=== PATIENT | female | born 1965 | race African-American/Black ===

== ENCOUNTER 2021-02-05 18:08 | Emergency (ER) | payer BC, SELFPAY ==
[2021-02-05 18:10] VITALS: BP 156/98; PULSE 98; RESP 18; TEMP 36.9; O2SAT 98
[2021-02-05 18:25] LABS: Basophils Percent Auto 0.7 % (0.2-1.2); Eosinophils Percent Auto 0.9 % (0-4.4); Hematocrit 44.2 % (37.0-47.0); Hemoglobin 14.7 g/dL (12.0-15.0); Immature Granulocyte Absolute 0.03 K/mm3 (0.00-0.031); Immature Granulocyte Percent A 0.7 % (0-0.5); Lymphocytes Absolute Auto 1.31 K/mm3 (0.9-3.2); Lymphocytes Percent Auto 30.1 % (18.3-44.2); Mean Corpuscular HGB Conc 33.3 g/dl (32-36); Mean Corpuscular Hemoglobin 31.6 pg (26-34); Mean Corpuscular Volume 95.1 fl (80-100); Mean Platelet Volume 10.7 fl (7.4-10.4); Monocytes Absolute Auto 0.7 K/mm3 (0.1-0.6); Monocytes Percent Auto 16.6 % (2.6-8.5); Neutrophils Absolute Auto 2.2 K/mm3 (1.3-6.7); Platelet Count Result 175 k/mm3 (150-375); Red Blood Count 4.65 M/mm3 (4.2-5.4); Red Cell Distribution Width 13.2 % (11.5-14.5); White Blood Count 4.4 K/mm3 (4.5-10.0)
[2021-02-05 18:33] LABS: Alanine Aminotransferase 16 U/L (4-35); Albumin Level 4.1 g/dL (3.5-5.1); Alkaline Phosphatase 62 U/L (38-126); Anion Gap 11 mmol/L (8-16); Aspartate Amino Transferase 25 U/L (14-36); Bilirubin,Total 0.9 mg/dL (0.2-1.3); Blood Urea Nitrogen 16 mg/dL (7-17); Calcium 9.4 mg/dL (8.4-10.2); Carbon Dioxide 24 mmol/L (22-30); Chloride 100 mmol/L (98-107); Estimated CRCL calculation 60 ml/min; Estimated Glomerular Filt Rate > 60; Glucose 93 mg/dL (65-110); Potassium 3.9 mmol/L (3.4-5.0); Sodium 135 mmol/L (137-145)
[2021-02-05 21:42] LABS: Add Urine Microscopic? YES; Appearance Urine Clear (Clear); Bacteria Urine 3+ /hpf; Bilirubin Urine Negative (Negative); Blood Urine 1+ (Negative); Color Urine Straw (Yellow); Glucose Urine UA Negative (Negative); Ketones Urine Negative (Negative); Leukocyte Esterase Ur Negative LEU/UL (Negative); Mucus Urine Rare /lpf; Nitrate Urine Negative (Negative); Protein Urine Negative (Negative); Specific Grav Ur 1.006 (1.001-1.035); Squamous Epithelial Cell Urine Rare /hpf (Few); Urobilinogen Urine Negative mg/dL (<2.0)
[2021-02-05] MEDS: diazePAM INJ (*CRX) 10 MG/2 ML SYRINGE 5 MG IV PUSH (21:52)
[2021-02-05] MEDS: KETOROLAC 30 MG/ML VIAL (*BKC) IV PUSH (21:53)
[2021-02-05] MEDS: SODIUM CHLORIDE 0.9% IV 1,000 ML 999 ML IV CONT (21:56)
--- NOTE | 2021-02-05 22:47 | ED.GENADULT ---
HPI - General Adult General Chief complaint: Abdominal Pain Stated complaint: Right flank pain. hx. of lupus. Time Seen by Provider: 02/05/21 20:52 History of Present Illness HPI narrative: Patient is a 55-year-old female with history of lupus who presents ER with right-sided flank pain. Ongoing over the last several days. Begins in her low back. She is felt some discomfort moved into her right mid abdomen as well. No urinary frequency urgency or dysuria. No hematuria. No nausea/vomiting. Reports she had outpatient blood work that showed an unknown potential issue with her kidney. She reports she has been taking ibuprofen without relief. Back pain is worse with bending twisting. No known injury or trauma. No lower extremity numbness or tingling. Related Data Allergies Allergy/AdvReac Type Severity Reaction Status Date / Time Contrast Media Allergy Unknown Hives / Uncoded 02/05/21 20:57 Red Face Review of Systems Review of Systems: All systems reviewed & are unremarkable except as noted in HPI and below Constitutional: Constitutional: Denies chills and Denies fever(s) Gastrointestinal: Gastrointestinal: Reports abdominal pain, Denies diarrhea, Denies nausea and Denies vomiting Genitourinary: Genitourinary: Denies hematuria, Denies nocturia, Denies dysuria and Reports flank pain Musculoskeletal: Musculoskeletal: Reports back pain, Denies arthralgias, Denies joint swelling and Reports muscle cramps Neurologic: Denies focal weakness and Denies numbness PMFSH Past Medical History Medical History (Updated 02/05/21 @ 23:05 by Franklin Khan MD) Lupus Rheumatoid arthritis Surgical History Surgical History (Updated 02/05/21 @ 22:56 by Franklin Khan MD) History of hysterectomy Social History Social History (Updated 02/05/21 @ 22:57 by Franklin Khan MD) Smoking status: Never smoker Exam Narrative: GENERAL: Well-appearing, well-nourished, and in no acute distress. HEAD: Normocephalic, atraumatic. CHEST: Clear to auscultation. No respiratory distress. HEART: Regular rate and rhythm. Normal peripheral pulses. ABDOMEN: Soft, nontender, nondistended. No CVA tenderness. Back: No midline tenderness of the thoracic or lumbar spine. Patient is very tender over the paraspinal musculature in the upper lumbar region. Knots palpated. EXTREMITIES: Normal range of motion. No edema. SKIN: Warm, dry, no rash. NEURO: Alert and oriented x3. PSYCH: Normal mood and affect. Course Course Emergency Course: Pain improved with Toradol and Valium. Reexamination back shows relaxation of the muscles with only mild discomfort. Repeat exam the abdomen shows no reproducible abdominal discomfort. Symptoms felt to be related to muscle spasm. Patient may also be developing UTI given 3+ bacteria. Will start on antibiotics. Vital Signs Vital signs: Vital Signs Temperature 98.4 F 02/05/21 18:10 Pulse Rate 98 02/05/21 18:10 Respiratory Rate 18 02/05/21 18:10 Blood Pressure 156/98 H 02/05/21 18:10 Pulse Oximetry 98 02/05/21 18:10 Temperature 98.4 F 02/05/21 18:10 Pulse Rate 98 02/05/21 18:10 Respiratory Rate 18 02/05/21 18:10 Blood Pressure 156/98 H 02/05/21 18:10 Pulse Oximetry 98 02/05/21 18:10 Medical Decision Making Vital Signs Vital Signs: Vital Signs Temperature 98.4 F 02/05/21 18:10 Pulse Rate 98 02/05/21 18:10 Respiratory Rate 18 02/05/21 18:10 Blood Pressure 156/98 H 02/05/21 18:10 Pulse Oximetry 98 02/05/21 18:10 Temperature 98.4 F 02/05/21 18:10 Pulse Rate 98 02/05/21 18:10 Respiratory Rate 18 02/05/21 18:10 Blood Pressure 156/98 H 02/05/21 18:10 Pulse Oximetry 98 02/05/21 18:10 Lab Data Result diagrams: 02/05/21 18:16 02/05/21 18:16 Labs: Lab Results 02/05/21 02/05/21 02/05/21 Range/Units 18:16 18:16 21:22 WBC 4.4 L (4.5-10.0) K/mm3 RBC 4.65 (4.2-5.4) M/mm3 Hgb 14.
[2021-02-05 23:54] VITALS: BP 146/76; PULSE 74; RESP 16; O2SAT 99
== END 2021-02-05 23:55 | disposition home or self-care (01) ==
PROVIDERS: Emergency Provider Emergency Medicine
DX: N39.0 Urinary tract infection, site not specified (principal); M54.50 Low back pain, unspecified; M06.9 Rheumatoid arthritis, unspecified
CPT/HCPCS: 36415; 80053; 81001; 81025; 85025; 96361; 96374; 96375; 99284; J1885; J3360; J7030

== ENCOUNTER 2021-12-07 16:40 | Observation (INO) | payer BC, SELFPAY ==
[2021-12-07] VITALS (30 sets, daily range): BP systolic 118–158; BP diastolic 68–123; PULSE 72–89; RESP 16–22; TEMP 36.7–36.8; O2SAT 95–100
--- NOTE | ~2021-12-07 | CT_ITS ---
EXAMINATION: CTA chest PE protocol DATE: 12/08/2021 13:50 INDICATION: Right chest pain. Shortness of breath. TECHNIQUE: Computed tomography angiography (CTA) of the chest was performed with 100 mL Omnipaque-350 intravenous contrast timed to evaluate the pulmonary arteries. Coronal maximum intensity projection 3D-reconstructions were created by the technologist. Automated exposure control and iterative reconst ruction technique were employed. The dose-length product was 433.78 mGy-cm. COMPARISON: CT abdomen and pelvis 08/01/2018 FINDINGS: There is mild scarring at the lung apices. There is a 4 mm nodule in right upper lobe, like ly benign. There is mild dependent atelectasis bilaterally. No pleural effusion. The heart size is no rmal. No pericardial effusion. There is no pulmonary embolus. There is mild thoracic spondylosis. IMPRESSION: 1. No pulmonary embolus. Reviewed, dictated and finalized at location A. IMPRESSION: 1. No pulmonary embolus.
--- NOTE | ~2021-12-07 | XR_ITS ---
EXAMINATION: XR chest 2V DATE: 12/07/2021 17:44 INDICATION: Chest pain. TECHNIQUE: Frontal and lateral views of the chest were obtained. COMPARISON: Chest 2 views 04/05/2018 FINDINGS: There is mild atelectasis in the lower lung zones. There is mild scarring at the lung apice s. No pleural effusion or pneumothorax. The heart size is normal. IMPRESSION: 1. Mild atelectasis in the lower lung zones and mild scarring at the lung apices. Reviewed, dictated and finalized at location A. IMPRESSION: 1. Mild atelectasis in the lower lung zones and mild scarring at the lung apice s.
--- NOTE | 2021-12-07 16:42 | ECG_ITS ---
Measurements Intervals [place] Rate: 88 P: 108 SD: 160 QRS: 161 QRSD: 76 T: 171 QT: 385 QTc: 467 Interpretive Statements SINUS RHYTHM VENTRICULAR PREMATURE COMPLEX ARM LEADS REVERSED BORDERLINE T WAVE ABNORMALITY- INFERIOR LEADS BORDERLINE ECG NO PREVIOUS ECG AVAILABLE FOR COMPARISON Electronically Signed On 12-07-2021 16:47:31 CDT by Pavel Cruz D.O.
[2021-12-07 17:39] LABS: Basophils Percent Auto 0.5 % (0.2-1.2); Eosinophils Percent Auto 0.7 % (0-4.4); Hematocrit 44.2 % (37.0-47.0); Hemoglobin 14.9 g/dL (12.0-15.0); Lymphocytes Absolute Auto 1.42 K/mm3 (0.9-3.2); Lymphocytes Percent Auto 35.1 % (18.3-44.2); Mean Corpuscular HGB Conc 33.7 g/dl (32-36); Mean Corpuscular Volume 95.1 fl (80-100); Mean Platelet Volume 10.8 fl (7.4-10.4); Monocytes Absolute Auto 0.4 K/mm3 (0.1-0.6); Monocytes Percent Auto 10.6 % (2.6-8.5); Neutrophils Absolute Auto 2.2 K/mm3 (1.3-6.7); Neutrophils Percent Auto 53.1 % (45.5-73.1); Platelet Count Result 196 k/mm3 (150-375); Red Blood Count 4.65 M/mm3 (4.2-5.4); Red Cell Distribution Width 12.8 % (11.5-14.5); White Blood Count 4.1 K/mm3 (4.5-10.0)
[2021-12-07 17:57] LABS: Alanine Aminotransferase 24 U/L (6-35); Albumin Level 4.5 g/dL (3.5-5.1); Alkaline Phosphatase 63 U/L (38-126); Anion Gap 9 mmol/L (8-16); Aspartate Amino Transferase 28 U/L (14-36); Bilirubin,Total 1.6 mg/dL (0.2-1.3); Blood Urea Nitrogen 19 mg/dL (7-17); Calcium 9.2 mg/dL (8.4-10.2); Carbon Dioxide 28 mmol/L (22-30); Chloride 100 mmol/L (98-107); Estimated Glomerular Filt Rate > 60; Glucose 86 mg/dL (65-110); Lipase 95 U/L (23-300); Potassium 3.7 mmol/L (3.4-5.0); Sodium 137 mmol/L (137-145)
[2021-12-07 18:09] LABS: Troponin I < 0.012 ng/mL (0.000-0.034)
--- NOTE | 2021-12-07 18:42 | ED.CHESTPAIN ---
HPI - Chest Pain General Chief Complaint: Chest Pain Stated Complaint: chest pain, SOB Time Seen by Provider: 12/07/21 18:28 History of Present Illness HPI narrative: 56 year old female here for evaluation of pain in her right lower side for the past 2 days. Patient states that she first noticed the pain on her right side present with deep inspirations and with a cough. Pain remains in her right side and is worse when she pushes on the area and also with exertion. Today, she noted some shortness of breath with exertion which is new for her, which prompted her ED evaluation. States she has been ill this past week with cough, congestion and rhinorrhea, which has improved without intervention. She did not take a COVID test. She has a history of HTN, rheumatoid arthritis and lupus, and takes methotrexate, hydroxychloroquine, and prednisone daily. Related Data Home Medications Medication Instructions Recorded Confirmed albuterol sulfate 90 mcg/actuation inhalation 12/08/21 aerosol inhaler amlodipine 5 mg tablet mg 12/08/21 cephalexin 500 mg capsule mg 12/08/21 citalopram 20 mg tablet mg 12/08/21 clonazepam 1 mg tablet mg 12/08/21 folic acid 1 mg tablet 12/08/21 irbesartan 150 mg tablet mg 12/08/21 lurasidone 40 mg tablet (Latuda) mg 12/08/21 prednisone 5 mg tablet mg 12/08/21 sarilumab 200 mg/1.14 mL mg subcut 12/08/21 subcutaneous syringe (Kevzara) Allergies Allergy/AdvReac Type Severity Reaction Status Date / Time Contrast Media Allergy Unknown Hives / Uncoded 12/08/21 01:57 Red Face Review of Systems Review of Systems: Gen: Denies fevers or chills Eyes: Denies eye pain or visual change ENT: Denies congestion Respiratory: Denies shortness of breath or cough CV: Reports pain to right side of thorax. GI: Denies abdominal pain nausea, emesis or diarrhea : denies burning, urgency, frequency or hematuria Musculoskeletal: Denies back pain or muscle pain Neuro: Denies numbness, tingling, weakness or focal weakness Skin: Denies rash Except as documented, all other systems reviewed and negative [facility] Past Medical History Medical History (Updated 12/08/21 @ 02:03 by Idalia T. Boeckenstedt, PA-C) Anxiety Depression Essential hypertension Lupus Rheumatoid arthritis Surgical History Surgical History History of hysterectomy Social History Social History (Updated 02/05/21 @ 22:57 by Franklin Khan MD) Smoking status: Never smoker Exam Narrative: APPEARANCE: Well appearing, no pain in distress, well-nourished. Head: Normocephalic and atraumatic. EYES: PERRLA/EOMI, conjunctivae clear NOSE: No nasal drainage EARS: External ear normal in appearance THROAT: Oropharynx is clear. Mucous membranes are moist. NECK: Supple. No adenopathy, no masses. RESPIRATORY: Airway patent, respirations nonlabored. Clear to auscultation bilaterally, no rales, rhonchi, wheezing. CARDIOVASCULAR: Regular rate and rhythm without murmurs, rubs, or gallops. ABDOMINAL: Normoactive bowel sounds. Soft, nontender, nondistended. No rebound tenderness or guarding. MUSCULOSKELETAL: Tender to palpation right lateral lower ribs. No overlying ecchymosis or deformity. Extremities are warm and well-perfused. Moves all extremities well. No edema. NEURO: Normal speech. No focal neurologic deficits. SKIN: Skin is warm and dry. No rashes. PSYCHIATRIC: Normal affect/mood. Course Vital Signs Vital signs: Vital Signs Temperature 98.1 F 12/07/21 16:53 Pulse Rate 89 12/07/21 16:53 Respiratory Rate 18 12/07/21 16:53 Blood Pressure 150/102 H 12/07/21 16:53 Temperature 98.3 F 12/08/21 00:30 Pulse Rate 69 12/08/21 00:30 Respiratory Rate 16 12/08/21 00:30 Blood Pressure 138/84 12/08/21 00:30 Pulse Oximetry 99 12/08/21 00:30 MDM - Chest Pain MDM Narrative Medical decision making narrative: 56 year old female here for evaluatio
[2021-12-07] MEDS: LIDOCAINE 5% PATCH 1 PATCH TRANSDERM (19:27)
[2021-12-07 21:10] LABS: Troponin I 0.026 ng/mL (0.000-0.034)
[2021-12-07 21:33] LABS: Prothrombin Time 12.3 Seconds (11.1-14.7)
[2021-12-07 21:34] LABS: Partial Thromboplastin Time 26.4 SECONDS (22.3-36.8)
[2021-12-07 21:44] LABS: D Dimer 0.73 ug/mL (<0.48)
--- NOTE | 2021-12-07 21:50 | ECG_ITS ---
Measurements Intervals [place] Rate: 82 P: 65 TN: 167 QRS: 36 QRSD: 74 T: 21 QT: 410 QTc: 481 Interpretive Statements SINUS RHYTHM POSSIBLE LEFT ATRIAL ENLARGEMENT [-0.1mV P WAVE IN V1/V2] BORDERLINE ECG COMPARED TO ECG 12/07/2021 16:45:55 ARM LEAD REVERSAL HAS BEEN CORRECTED Electronically Signed On 12-10-2021 14:27:00 CDT by Chuy Souza M.D.
[2021-12-07] MEDS: ASPIRIN 325 MG TABLET PO (22:46)
[2021-12-07 23:32] LABS: SARS-CoV-2 RNA PCR Negative
[2021-12-08] VITALS (8 sets, daily range): BP systolic 126–138; BP diastolic 70–94; PULSE 69–94; RESP 16–20; TEMP 36.4–36.8; O2SAT 96–99; BMI 30.7
[2021-12-08] MEDS: SODIUM CHLORIDE 0.9% IV 1,000 ML 999 ML IV CONT
--- NOTE | 2021-12-08 01:48 | PM.IMHP ---
H&P: HPI History of Present Illness Date/Time: 12/08/21 01:48 Chief Complaint: Chest pain Narrative: 56-year-old female with a past medical history of rheumatoid arthritis, central hypertension, depression and anxiety who presented to the ER with right stated chest pain. Patient reports that she recently had cold symptoms 2 weeks ago that resolved 1 week ago. She did not have any chest pain or shortness of breath at that time. She was having cough at that time but that has since resolved. He reports that yesterday when she was ironing clothes her clothes for work she had sudden onset of right lower rib pain. Pain was worse with movement and palpation. The pain was initially sharp and stabbing. She took some Advil which seemed to help her pain and she laid down. When she woke up in the morning she had a more dull aching pain. However, as the day progressed the pain worsened and she came to the ER for evaluation. She reports that she has been going to the gym and lifting weights. She last went to the gym on Friday. She denies any lifting or pulling at home or at work. Pain is worse with deep breathing which she has causing her to feel short of breath as she does not want to take a deep breath. She reports that she has frequent cramping of her calves and is as of increased cramping of the right calf over the last 24 hours. The cramping in her legs have been ongoing for about a month. Has dependent edema of her lower extremities when she is working but has had no increased edema from baseline. She walks several miles a day at work and does not have shortness of breath or chest pain with these activities. She denies any nausea or vomiting. she has not had any fevers. Her COVID PCR in the ER was negative. She is on methotrexate hydroxychloroquine and prednisone daily for her rheumatoid arthritis and lupus. Currently her Plaquenil is on hold as she has been having some blurred vision. She is supposed to follow-up with ophthalmology in the next couple of weeks. Her labs in the ER were significant for mildly elevated BUN and total protein. She thinks that she has been eating and drinking well denies any recent for dehydration. She had some leukopenia on her labs in the ER but has chronic leukopenia. The patient reports that her complains that she snores quite loudly. Sounds like she does have somnolence when she sits to watch TV and frequently falls asleep. She has never been evaluated for sleep apnea. Review of Systems Review of Systems: 12 systems were reviewed with pertinent positives and negatives per HPI. Except as documented in the HPI, all other systems were reviewed and are negative. [facility] Past Medical History Medical History Anxiety Depression Essential hypertension Lupus Rheumatoid arthritis Surgical History Surgical History History of hysterectomy Family History Family History (Updated 12/08/21 @ 05:45 by Sally Torres DO) Sibling Congestive heart failure, Onset Age: 50 Father Cerebrovascular accident Acute myocardial infarction, Onset Age: 70 Hypertension Mother Cerebrovascular accident Acute myocardial infarction Hypertension Social History Social History (Updated 12/08/21 @ 05:48 by Sally Torres DO) Social History: She lives at home with her of 4 years. She raised 3 sons. 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 She drinks alcohol on occasion once every 2 or 3 months. She is a lifelong nonsmoker and does not use illicit substances. Code status: Full code Surrogate decision maker: Юлия Victoria () Smoking status: Never smoker Alcohol intake: current Drinks per week: 1 Substance use: never Substance use type: does not use Spiritual care concerns: No Comments Patient is 1 of 19 children. Meds H
--- NOTE | 2021-12-08 01:53 | ADMGEN ---
This patient, Cherelle Hernandez, was admitted to 2 Medical Room 250-01 @0150. Patient/family oriented to hospital policies and general routines including ID bracelet, bed and alarms, visiting hours, pain management, procedures, bathroom and other care routines, personal items, smoking policy, room service/diet, and visiting hours. Information on how to activate the Rapid Response Team has been discussed. Patient/Family are encouraged to report perceived risks to care and to ask questions if they do not understand what they are told or what they should do.
[2021-12-08] MEDS: ENOXAPARIN 100 MG/ML SYRINGE 85 MG SUB-Q (02:34)
[2021-12-08 03:02] LABS: Hematocrit 44.1 % (37.0-47.0); Hemoglobin 14.7 g/dL (12.0-15.0); Mean Corpuscular HGB Conc 33.3 g/dl (32-36); Mean Corpuscular Hemoglobin 31.8 pg (26-34); Mean Corpuscular Volume 95.5 fl (80-100); Mean Platelet Volume 10.6 fl (7.4-10.4); Platelet Count Result 200 k/mm3 (150-375); Red Blood Count 4.62 M/mm3 (4.2-5.4); Red Cell Distribution Width 12.9 % (11.5-14.5); White Blood Count 2.6 K/mm3 (4.5-10.0)
[2021-12-08 03:43] LABS: Troponin I < 0.012 ng/mL (0.000-0.034)
[2021-12-08 04:10] LABS: Anion Gap 10 mmol/L (8-16); Blood Urea Nitrogen 14 mg/dL (7-17); Carbon Dioxide 23 mmol/L (22-30); Chloride 106 mmol/L (98-107); Estimated CRCL calculation 63 ml/min; Estimated Glomerular Filt Rate > 60; Glucose 126 mg/dL (65-110); Sodium 139 mmol/L (137-145)
[2021-12-08] MEDS: predniSONE 40 MG, predniSONE 10 MG 50 MG PO ×3 (06:36→12:00)
[2021-12-08] MEDS: amLODIPine BESYLATE 5 MG TABLET PO (09:06)
[2021-12-08] MEDS: FOLIC ACID 1 MG TABLET PO (09:06)
[2021-12-08] MEDS: IRBESARTAN 150 MG TABLET PO (09:06)
[2021-12-08] MEDS: CITALOPRAM HYDROBROMIDE 20 MG TABLET PO (09:07)
[2021-12-08] MEDS: diphenhydrAMINE HCl CAP 25 MG CAPSULE 50 MG PO ×2 (12:00)
--- NOTE | 2021-12-08 15:10 | PM.DS ---
DS: Admitting Diagnosis Discharge Date 12/08/21 15:19 Admitting Diagnosis Chest pain elevated d-dimer dehydration leukopenia DS: Discharge Diagnosis Discharge Diagnosis (1) Chest pain: Code(s): R07.9 - Chest pain, unspecified Status: Acute Assessment and Plan: Atypical in nature, location and reproducible palpation. Given elevated D-dimer will check CT to rule out pulmonary embolism. Chest CTA negative for PE and no consolidation suggestive of bacterial pneumonia noted. She received one time dose of therapeutic Lovenox 1 mg/kilogram SQ and full-dose aspirin in the ER. (2) Elevated d-dimer: Code(s): R79.89 - Other specified abnormal findings of blood chemistry Status: Acute Assessment and Plan: Patient's elevated D-dimer could be due to her chronic lupus and rheumatoid arthritis but given her right lower chest pain and history of cramping of her lower extremities CTA chest obtained to rule out pulmonary embolism. She has an IV contrast allergy and was premedicate with prednisone and Benadryl per protocol. (3) Dehydration: Code(s): E86.0 - Dehydration Status: Acute Assessment and Plan: Evidence by elevated BUN and total protein above baseline. Patient received 1 L normal saline in the ER. Repeat chemistry showed stable electrolytes and normal BUN/creatinine. She was eating and drinking without complaint. (4) Leukopenia: Code(s): D72.819 - Decreased white blood cell count, unspecified Status: Acute Assessment and Plan: Appears to be chronic in nature versus secondary to viral infection. Possibly due to chronic immunosuppressive therapy for rheumatoid arthritis and lupus. Patient afebrile without sputum changes suggesting bacterial pneumonia. No radiologic evidence of bacterial pneumonia. DS: Summary Hospital Course Reason for hospitalization: chest pain Hospital Course: Cherelle Hernandez is a 56-year-old female with a past medical history of rheumatoid arthritis, hypertension, depression and anxiety who presented to the ER with right sided chest pain.? Patient reported recently having cold symptoms 2 weeks prior to admission that resolved 1 week ago.? She did not have any chest pain or shortness of breath at that time.? She was coughing at that time but that has since resolved.? The day before admission she reported that while ironing her clothes for work she had sudden onset of right lower rib pain.? The pain was worse with movement and palpation.? It was initially sharp and stabbing.? She took some Advil which seemed to help her pain and she laid down.? When she woke up in the morning she had a more dull aching pain.? However, as the day progressed the pain worsened and she came to the ER for evaluation.? She reported that she has been going to the gym and lifting weights.? She last went to the gym on Friday.? She denies any lifting or pulling at home or at work.? Pain is worse with deep breathing which she has causing her to feel short of breath as she does not want to take a deep breath.? She reports that she has frequent cramping of her calves with increased cramping of the right calf over the last 24 hours, this has been ongoing for 1 month.? She has dependent edema of her lower extremities when she is working but has had no increased edema from baseline.? She walks several miles a day at work and does not typically have shortness of breath or chest pain with these activities.? She denied nausea or vomiting.? No fevers.? Her COVID PCR in the ER was negative.? She is on methotrexate, hydroxychloroquine, and prednisone daily for her rheumatoid arthritis and lupus.? Currently her Plaquenil is on hold as she has been having some blurred vision.? She is supposed to follow-up with ophthalmology in the next couple of weeks.? Her labs in the ER were significant for mildly elevated BUN and total protein.? She thinks that she has been eating
[2021-12-08 17:00] LABS: Procalcitonin < 0.0 ng/mL
== END 2021-12-08 15:50 | disposition home or self-care (01) ==
LOC: ANHED 21:53 → ANH2MED 12-08 02:03 → ANH3MED 12-11 10:25
PROVIDERS: Emergency Medicine; Physician Assistant; Admitting Provider Internal Medicine; Emergency Provider Emergency Medicine; Visit Provider Nurse Practitioner Family
DX: R07.9 Chest pain, unspecified (principal); R79.89 Other specified abnormal findings of blood chemistry; E86.0 Dehydration; D72.819 Decreased white blood cell count, unspecified; I10 Essential (primary) hypertension; Z20.822 Contact with and (suspected) exposure to COVID-19; M32.9 Systemic lupus erythematosus, unspecified; M06.9 Rheumatoid arthritis, unspecified
CPT/HCPCS: 36415; 71046; 71275; 80048; 80053; 83690; 84145; 84484; 85025; 85027; 85380; 85610; 85730; 93005; 96372; A9270; C9803; G0378; J1650; J7030; J7512; Q9967; U0003; U0005

== ENCOUNTER 2021-12-10 08:21 | Outpatient (CLI) | payer BC, SELFPAY ==
--- NOTE | ~2021-12-10 | XR_ITS ---
EXAMINATION: XR chest 2V 12/10/2021 09:03 INDICATION: Chest pain. Positive d-dimer. PROCEDURE: 2 view chest COMPARISON: 12/07/2021 FINDINGS: The lungs are clear. The cardiomediastinal silhouette is within normal limits. There are no pleural effusions. There is no pneumothorax suspected. IMPRESSION: 1: NO ACUTE CARDIOPULMONARY DISEASE. Reviewed, dictated and finalized at location A.
== END 2021-12-10 08:22 | disposition home or self-care (01) ==
PROVIDERS: Visit Provider Nurse Practitioner Family
DX: R07.89 Other chest pain (principal)
CPT/HCPCS: 71046

== ENCOUNTER 2022-07-05 14:07 | Emergency (ER) | payer BC, SELFPAY ==
--- NOTE | 2022-07-05 14:17 | ECG_ITS ---
Measurements Intervals [place] Rate: 85 P: 66 VT: 166 QRS: 56 QRSD: 70 T: 31 QT: 371 QTc: 443 Interpretive Statements SINUS RHYTHM COMPARED TO ECG 12/07/2021 23:03:15 NO SIGNIFICANT CHANGES Electronically Signed On 07-05-2022 15:09:43 CDT by Tae Yap M.D.
[2022-07-05 14:28] VITALS: BP 146/99; PULSE 87; RESP 18; TEMP 36.2; O2SAT 99
[2022-07-05 15:04] LABS: Basophils Percent Auto 0.7 % (0.2-1.2); Eosinophils Percent Auto 0.9 % (0-4.4); Hematocrit 42.7 % (37.0-47.0); Immature Granulocyte Absolute 0.01 K/mm3 (0.00-0.031); Immature Granulocyte Percent A 0.2 % (0-0.5); Lymphocytes Absolute Auto 1.21 K/mm3 (0.9-3.2); Lymphocytes Percent Auto 27.2 % (18.3-44.2); Mean Corpuscular HGB Conc 32.8 g/dl (32-36); Mean Corpuscular Hemoglobin 31.8 pg (26-34); Mean Platelet Volume 10.8 fl (7.4-10.4); Monocytes Absolute Auto 0.5 K/mm3 (0.1-0.6); Monocytes Percent Auto 10.6 % (2.6-8.5); Neutrophils Absolute Auto 2.7 K/mm3 (1.3-6.7); Neutrophils Percent Auto 60.4 % (45.5-73.1); Platelet Count Result 187 k/mm3 (150-375); Red Cell Distribution Width 12.8 % (11.5-14.5); White Blood Count 4.5 K/mm3 (4.5-10.0)
[2022-07-05 15:23] LABS: Alanine Aminotransferase 27 U/L (6-35); Albumin Level 4.3 g/dL (3.5-5.1); Alkaline Phosphatase 40 U/L (38-126); Anion Gap 8 mmol/L (8-16); Aspartate Amino Transferase 28 U/L (14-36); Bilirubin,Total 1.6 mg/dL (0.2-1.3); Blood Urea Nitrogen 10 mg/dL (7-17); Carbon Dioxide 26 mmol/L (22-30); Chloride 103 mmol/L (98-107); Estimated CRCL calculation 65 ml/min; Estimated Glomerular Filt Rate > 60; Glucose 109 mg/dL (65-110); Sodium 137 mmol/L (137-145)
[2022-07-05 15:50] LABS: Lithium < 0.2 mmol/L (0.6-1.2)
[2022-07-05 16:09] VITALS: BP 153/99; PULSE 84; TEMP 37.1; O2SAT 100
[2022-07-05] MEDS: MECLIZINE HCL 25 MG TABLET PO (18:10)
[2022-07-05] MEDS: SODIUM CHLORIDE 0.9% IV 1,000 ML 999 ML IV CONT (18:14)
[2022-07-05 18:30] VITALS: BP 134/81; PULSE 71; RESP 18; O2SAT 99
--- NOTE | 2022-07-05 19:26 | ED.GENADULT ---
HPI - General Adult General Chief complaint: Dizziness Stated complaint: Dizzy, palpations Time Seen by Provider: 07/05/22 17:46 History of Present Illness HPI narrative: Patient is a 56-year-old female who presents ER with dizziness. Ongoing over the last day spinning. Associate with some nausea and anxiety. Reports she has had some fullness in her ears bilaterally. No runny nose or sore throat or cough. No weakness or numbness to an arm or leg. Patient became concerned that she may be toxic on her lithium which she takes daily. She does not have a level checked recently. Dizziness is worse with movement better when she sits still however she does still sometimes feel like the room is moving when she sits still. Related Data Home Medications Medication Instructions Recorded Confirmed albuterol sulfate 90 mcg/actuation 2 puff inhalation Q6H PRN 12/08/21 12/08/21 aerosol inhaler Shortness Of Breath amlodipine 5 mg tablet 5 mg PO DAILY 12/08/21 12/08/21 citalopram 20 mg tablet 20 mg PO DAILY 12/08/21 12/08/21 clonazepam 1 mg tablet 1 mg PO HS PRN Anxiety 12/08/21 12/08/21 folic acid 1 mg tablet 1 mg PO DAILY 12/08/21 12/08/21 irbesartan 150 mg tablet 150 mg PO DAILY 12/08/21 12/08/21 lurasidone 40 mg tablet (Latuda) 40 mg PO DAILY 12/08/21 12/08/21 prednisone 5 mg tablet 5 mg PO DAILY 12/08/21 12/08/21 sarilumab 200 mg/1.14 mL 200 mg subcut [id number] 12/08/21 12/08/21 subcutaneous syringe (Kevzara) Allergies Allergy/AdvReac Type Severity Reaction Status Date / Time Contrast Media Allergy Unknown Hives / Uncoded 07/05/22 14:08 Red Face Review of Systems Review of Systems: All systems reviewed & are unremarkable except as noted in HPI and below Constitutional: Constitutional: Denies chills, Denies fatigue and Denies fever(s) ENT: Reports dizziness, Denies nasal congestion and Denies sore throat Comments: Ear fullness Respiratory: Respiratory: Denies cough and Denies dyspnea Gastrointestinal: Gastrointestinal: Denies abdominal pain, Reports nausea and Denies vomiting Psychiatric: Psychiatric: Reports anxiety [facility] Past Medical History Medical History (Updated 07/05/22 @ 19:55 by Franklin Khan MD) Anxiety Depression Essential hypertension Lupus Rheumatoid arthritis Surgical History Surgical History (Updated 12/08/21 @ 19:56 by Sally Torres DO) History of hysterectomy History of laparoscopic cholecystectomy Family History Family History (Updated 12/08/21 @ 05:50 by Sally Torres DO) Sibling Congestive heart failure, Onset Age: 50 Father Cerebrovascular accident Acute myocardial infarction, Onset Age: 70 Hypertension Mother Cerebrovascular accident Acute myocardial infarction Hypertension Social History Social History (Updated 12/08/21 @ 05:48 by Sally Torres DO) Social History: She lives at home with her of 4 years. She raised 3 sons. 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 She drinks alcohol on occasion once every 2 or 3 months. She is a lifelong nonsmoker and does not use illicit substances. Code status: Full code Surrogate decision maker: Юлия Victoria () Smoking status: Never smoker Alcohol intake: current Drinks per week: 1 Substance use: never Substance use type: does not use Spiritual care concerns: No Exam Narrative: GENERAL: Well-appearing, well-nourished, and in no acute distress. HEAD: Normocephalic, atraumatic. EYES: PERRL and EOMI. ENT: Mucous membranes moist. CHEST: Clear to auscultation. No respiratory distress. HEART: Regular rate and rhythm. Normal peripheral pulses. ABDOMEN: Soft, nontender, nondistended. EXTREMITIES: Normal range of motion. No edema. NEURO: Alert and oriented x3. PSYCH: Normal mood and affect. Course Course Emergency Course: Dizziness better with fluids and meclizine. Patient informed of results. [place] appropriate for
== END 2022-07-05 20:04 | disposition home or self-care (01) ==
PROVIDERS: Emergency Medicine; Emergency Provider Emergency Medicine
DX: R42 Dizziness and giddiness (principal); I10 Essential (primary) hypertension; M06.9 Rheumatoid arthritis, unspecified; F41.9 Anxiety disorder, unspecified; F32.A Depression, unspecified; Z90.710 Acquired absence of both cervix and uterus; Z90.49 Acquired absence of other specified parts of digestive tract
CPT/HCPCS: 36415; 80053; 80178; 85025; 93005; 96360; 99284; A9270; J7030

== ENCOUNTER 2023-06-04 06:55 | Emergency (ER) | payer BC, SELFPAY ==
[2023-06-04 06:57] VITALS: BP 147/74; PULSE 89; RESP 14; TEMP 36.8; O2SAT 100
--- NOTE | 2023-06-04 07:29 | ED.GENADULT ---
HPI - General Adult General Chief complaint: Unspecified Stated complaint: L breast pain, feels like muscle spasm Time Seen by Provider: 06/04/23 07:22 History of Present Illness HPI narrative: Pt presents with sharp brief intermittent left chest wall pain under left breast. Pt says it last a couple of seconds and resolves. Pt has had several episodes over the last couple of days. Pt lifts weights and unsure if that is related. Pt says it feels like a spasm. Pt denies SOB or feeling any lumps in breast. Related Data Home Medications Medication Instructions Recorded Confirmed albuterol sulfate 90 mcg/actuation 2 puff inhalation Q6H PRN 12/08/21 12/08/21 aerosol inhaler Shortness Of Breath amlodipine 5 mg tablet 5 mg PO DAILY 12/08/21 12/08/21 citalopram 20 mg tablet 20 mg PO DAILY 12/08/21 12/08/21 clonazepam 1 mg tablet 1 mg PO HS PRN Anxiety 12/08/21 12/08/21 folic acid 1 mg tablet 1 mg PO DAILY 12/08/21 12/08/21 irbesartan 150 mg tablet 150 mg PO DAILY 12/08/21 12/08/21 lurasidone 40 mg tablet (Latuda) 40 mg PO DAILY 12/08/21 12/08/21 prednisone 5 mg tablet 5 mg PO DAILY 12/08/21 12/08/21 sarilumab 200 mg/1.14 mL 200 mg subcut [id number] 12/08/21 12/08/21 subcutaneous syringe (Kevzara) Allergies Allergy/AdvReac Type Severity Reaction Status Date / Time Contrast Media Allergy Unknown Hives / Uncoded 06/04/23 06:56 Red Face Review of Systems Review of Systems: All systems reviewed & are unremarkable except as noted in HPI and below PMFSH Past Medical History Medical History (Updated 06/04/23 @ 07:35 by Lucrecia Guevara III, DO) Anxiety Depression Essential hypertension Lupus Rheumatoid arthritis Surgical History Surgical History (Updated 12/08/21 @ 19:56 by Sally Torres DO) History of hysterectomy History of laparoscopic cholecystectomy Family History Family History (Updated 12/08/21 @ 05:50 by Sally Torres DO) Sibling Congestive heart failure, Onset Age: 50 Father Cerebrovascular accident Acute myocardial infarction, Onset Age: 70 Hypertension Mother Cerebrovascular accident Acute myocardial infarction Hypertension Social History Social History (Updated 12/08/21 @ 05:48 by Sally Torres DO) Social History: She lives at home with her of 4 years. She raised 3 sons. 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 She drinks alcohol on occasion once every 2 or 3 months. She is a lifelong nonsmoker and does not use illicit substances. Code status: Full code Surrogate decision maker: Юлия Victoria () Smoking status: Never smoker Alcohol intake: current Drinks per week: 1 Substance use: never Substance use type: does not use Spiritual care concerns: No Exam Const: General: cooperative, healthy appearing and no acute distress Nutritional Appearance: average body habitus and well nourished Orientation/consciousness: patient oriented x3 Limitations: no limitations Chest: Chest palpation & inspection: normal inspection of the chest, normal palpation of entire chest wall and localized rib tenderness with anteroposterior compression Resp: Effort & Inspection: normal respiratory effort Auscultation: clear to auscultation bilaterally Cardio: Rate: regular rate Rhythm: regular rhythm Back/Spine/Pelvis: Back: no CVA tenderness Thoracic/Lumbar Spine: thoracic and lumbar spine normal to inspection Skin: General skin exam: normal color and no rashes or lesions noted Neuro: General: patient oriented x3, moves all extremities and no focal motor deficits Extrem: General: normal to inspection, full ROM and no clubbing, cyanosis or edema Psych: Appearance: grossly normal Mental Status: mental status grossly normal Speech and movement: Normal speech and movement present Affect: normal affect Attitude: cooperative Thought process: Normal thought process present Thought content: Yes Normal thought cont
== END 2023-06-04 07:43 | disposition home or self-care (01) ==
PROVIDERS: Emergency Provider Emergency Medicine
DX: R07.89 Other chest pain (principal); F41.9 Anxiety disorder, unspecified; F32.A Depression, unspecified; I10 Essential (primary) hypertension; M32.9 Systemic lupus erythematosus, unspecified; M06.9 Rheumatoid arthritis, unspecified; Z90.710 Acquired absence of both cervix and uterus; Z90.49 Acquired absence of other specified parts of digestive tract
CPT/HCPCS: 99283

== ENCOUNTER 2024-12-01 10:44 | Emergency (ER) | payer BC, SELFPAY ==
--- OUTSIDE RECORDS SUMMARY | 2016-04-12 01:00 | XMS_ITS | Encounter Summary ---
Author Organization [facility] Healthcare Address [address] [place] [address] Care Team Providers Care Gasoline Pump Installer Name Role Phone Ramya Ly MD Primary Care Provider [phone] Reason for Visit * Diagnostic Imaging (Routine) - Closed Specialty Diagnoses / Procedures Referred By Contac t Referred To Contact Procedures Breast Imaging Screening Outside Reference Referral, Self Referral ID Status Reason Start Date Expiration Date Visits Re quested Visits Authorized [id number] Closed 05/30/2021 06/29/2022 1 1 Encounter Details Date Type Department Care Team (Late st Contact Info) Description 04/12/2016 Hospital Encounter [facility] [address] [place] [address] [phone] Social History Tobacco Use Types Packs/Day Years Used Date Smoking Tobacco: Never Alcohol Use Standard Drinks/Week Comments Yes 0 (1 standard drink = 0.6 oz pur e alcohol) Comments Unknown Sex and Gender Information Value Date Recorded Sex Assigned at Female 10/28/2022 7:53 PM CDT Legal Sex Female 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 Gender Identity Male 08/29/2022 2:30 PM CDT Sexual Orientation Not on file documented as of this encounter Plan of Treatment Not on file documented as of this encounter Procedures Procedure Name Priority Date/Time Associated Diagnosis Comments BREAST IMAGING MG SCREENING OUTSIDE REFERENCE Routine 04/12/2016 12:00 AM B[employer] SALES MANAGER documented in this encounter Results * Breast Imaging Screening Outside Reference (04/12/2016 12:00 AM B[employer]ERY [employer] SALES MANAGER) Impressions RAD_MAMMO_BJTricia - 05/30/2021 1:33 PM CDT These images are for Reference purposes only and have not been reviewed by [facility] Radiology. There will be no report generated by a [facility] Radiologist. Narrative RAD_MAMMOINNA - 05/30/2021 1:33 PM CDT EXAMINATION: Images For Reference Purposes Only us Self Referral IMG MAMMO PROCEDURES Final Resul t RAD_MAMMO_ALLI documented in this encounter Visit Diagnoses Not on filedocumented in this encounter Additional Health Concerns Infection Onset Date Last Indicated Resolved Time MRSA Comment:Backloaded December 27, 2010 03/28/2007 03/28/200710/08 5:00 AM CDT documented as of this encounter Care Teams Gasoline Pump Installer Relationship Specialty Start Date End Date Ramya Ly MD PCP - General 06/30/15 06/06/16 documented as of this encounter
--- OUTSIDE RECORDS SUMMARY | 2016-04-12 01:00 | XMS_ITS | Encounter Summary ---
Author Organization [facility] Healthcare Address [address] [place] [address] Care Team Providers Care Screwhead Stoner And Polisher Name Role Phone Ramya Ly MD Primary Care Provider [phone] Reason for Visit * Diagnostic Imaging (Routine) - Closed Specialty Diagnoses / Procedures Referred By Contac t Referred To Contact Procedures Breast Imaging Screening Outside Reference Referral, Self Referral ID Status Reason Start Date Expiration Date Visits Re quested Visits Authorized [id number] Closed 05/30/2021 06/29/2022 1 1 Encounter Details Date Type Department Care Team (Late st Contact Info) Description 04/12/2016 Hospital Encounter [facility] [address] [place] [phone] Social History Tobacco Use Types Packs/Day Years Used Date Smoking Tobacco: Never Alcohol Use Standard Drinks/Week Comments Yes 0 (1 standard drink = 0.6 oz pur e alcohol) Comments Unknown Sex and Gender Information Value Date Recorded Sex Assigned at Female 10/28/2022 7:53 PM CDT 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 Gender Identity Male 08/29/2022 2:30 PM CDT Sexual Orientation Not on file documented as of this encounter Plan of Treatment Not on file documented as of this encounter Procedures Procedure Name Priority Date/Time Associated Diagnosis Comments BREAST IMAGING MG SCREENING OUTSIDE REFERENCE Routine 04/12/2016 12:00 AM DICTAPHONE MECHANIC documented in this encounter Results * Breast Imaging Screening Outside Reference (04/12/2016 12:00 AM DICTAPHONE MECHANIC) Impressions RAD_MAMMO_BJTricia - 05/30/2021 1:33 PM CDT These images are for Reference purposes only and have not been reviewed by [facility] Radiology. There will be no report generated by a [facility] Radiologist. Narrative RAD_MAMMOINNA - 05/30/2021 1:33 PM CDT EXAMINATION: Images For Reference Purposes Only us Self Referral IMG MAMMO PROCEDURES Final Resul t RAD_MAMMO_ALLI documented in this encounter Visit Diagnoses Not on filedocumented in this encounter Additional Health Concerns Infection Onset Date Last Indicated Resolved Time MRSA Comment:Backloaded December 27, 2010 03/28/2007 03/28/200710/08 5:00 AM CDT documented as of this encounter Care Teams Screwhead Stoner And Polisher Relationship Specialty Start Date End Date Ramya Ly MD PCP - General 06/30/15 06/06/16 documented as of this encounter
--- NOTE | ~2024-12-01 | CT_ITS ---
EXAMINATION: CT abdomen pelvis wo con DATE: 12/01/2024 12:09 INDICATION: Left lower quadrant abdominal pain. TECHNIQUE: Computed tomography (CT) of the abdomen and pelvis was performed without intravenous contrast. Automated exposure control and iterative reconstruction technique were employed. The dose-length product was 546.77 mGy-cm. COMPARISON: CT abdomen and pelvis 08/01/2018 FINDINGS: The visualized portions of lung bases demonstrate mild atelectasis. No pleural effusion. The heart size is normal. No pericardial effusion. The liver and spleen are normal. The gallbladder is absent. The pancreas, adrenal glands, and kidneys are normal. There is no urolithiasis. There are scattered diverticula in the colon. There is mild fat stranding around a sigmoid diverticulum, consistent with diverticulitis. The appendix is normal. There are no dilated loops of bowel. There are no pathologically enlarged lymph nodes. There is no free intraperitoneal fluid. There is mild thoracic and lumbar spondylosis. IMPRESSION: 1. Mild sigmoid diverticulosis. No perforation or abscess. Reviewed, dictated and finalized at location E.
--- OUTSIDE RECORDS SUMMARY | 2024-12-01 10:00 | XMS_ITS | Encounter Summary ---
Author Organization [facility] Healthcare Address [address] [place] [address] Care Team Providers Care Recreation Therapy Teacher Name Role Phone Ramya Ly MD Primary Care Provider [phone] Deni Syed MD Unavailable [phone] Reason for Visit * Reason Comments Abdominal Pain 3 days ago, lower ri ght abdominal pain. Frequency with urination. Encounter Details Date Type Department Care Team (Late st Contact Info) Description 12/01/2024 10:00 AM CDT Office Visit [facility] at [address] [address] Mayra Burris NP [address] [place] [address] [address] [place] [address] Increased frequency of urination (Primary Dx); Left lower quadrant abdominal pain; Left lower quadrant abdominal tenderness without rebound tenderness Social History Tobacco Use Types Packs/Day Years Used Date Smoking Tobacco: Never Alcohol Use Standard Drinks/Week Comments Yes 0 (1 standard drink = 0.6 oz pur e alcohol) Comments Unknown Sex and Gender Information Value Date Recorded Sex Assigned at Female 10/28/2022 7:53 PM CDT Legal 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 Gender Identity Male 08/29/2022 2:30 PM CDT Sexual Orientation Not on file documented as of this encounter Last Filed Vital Signs Vital Sign Reading Time Taken Comments Blood Pressure 132/80 12/01/2024 10:02 AM CDT Pulse 80 12/01/2024 10:02 AM CDT Temperature 36.7 C (98.1 F) 12/01/2024 10:02 AM CDT Respiratory Rate 18 12/01/2024 10:02 AM CDT Oxygen Saturation 97% 12/01/2024 10:02 AM CDT Inhaled Oxygen Concentration - - Weight 79.8 kg (176 lb) 12/01/2024 10:02 AM CDT Height - - Body Mass Index 29.29 09/17/2024 1:45 PM CDT documented in this encounter Plan of Treatment Scheduled Orders Name Type Priority Associated Diagnoses Orde r Schedule Urine culture Urine, clean voided Microbiology Routine Increased frequency of urination Expected: 12/01/2024, Expires: 12/01/2025 documented as of this encounter Procedures Procedure Name Priority Date/Time Associated Diagnosis Comments POCT URINALYSIS DIPSTICK Routine 12/01/2024 10:16 AM CDT Increased frequency of urination documented in this encounter Results * (ABNORMAL) POCT urinalysis dipstick (12/01/2024 10:16 AM CDT) Color, Urine, POC [place] Clarity, ur, POC Clear Clear Glucose, ur, POC 100.(A) Negative Bilirubin, ur, POC Negative Negative Comment:n Ketones, ur, POC Negative Negative Specific [place], POC 1.010 1.003 - 1.030 Blood, ur, POC Trace(A) Negative pH, ur, POC 6.0 5.0 - 8.0 Protein, ur, POC Negative Negative Urobilinogen, urine, POC 0.2 0.2 - 1.0 mg/dL Nitrite, ur, POC Positive(A) Negative Leukocytes, ur, POC Negative Negative Lot Number [id number] Urine 12/01/2024 10:1 6 AM CDT Mayra Burris NP POINT OF CARE TEST ORDERABLES F inal Result documented in this encounter Visit Diagnoses Diagnosis Increased frequency of urination- Primary Urinary frequency Left lower quadrant abdominal pain Left lower quadrant abdominal tenderness without rebound tenderness documented in this encounter Historical Medications * This list may reflect changes made after this encounter. Medication Sig Dispense Quantity Refills Last Filled Start D ate End Date nitrofurantoin monohydrate (MACROBID) 100 mg capsule 11/28/2024 atenolol (TENORMIN ORAL) added in this encounter Care Teams Recreation Therapy Teacher Relationship Specialty Start Date End Date Ramya Ly MD PCP - General Internal Medicine 01/09/17 Deni Syed MD [address] [place] [address] Consulting Physician Rheumatology 03/14/23 documented as of this encounter
--- OUTSIDE RECORDS SUMMARY | 2024-12-01 10:00 | XMS_ITS | Encounter Summary ---
Author Organization [facility] Healthcare Address [address] [place] [address] Care Team Providers Care Lithographed Plate Inspector Name Role Phone Ramya Ly MD Primary Care Provider [phone] Deni Syed MD Unavailable [phone] Reason for Visit * Reason Comments Abdominal Pain 3 days ago, lower ri ght abdominal pain. Frequency with urination. 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 Gender Identity Male 08/29/2022 2:30 PM CDT [...] (12/01/2024 10:16 AM CDT) Color, Urine, POC [place] Clarity, ur, POC Clear Clear Glucose, ur, POC 100.(A) Negative Bilirubin, ur, POC Negative Negative Comment:n Ketones, ur, POC Negative Negative Specific [place], POC 1.010 1.003 - 1.030 Blood, ur, POC Trace(A) Negative pH, ur, POC 6.0 5.0 - 8.0 Protein, ur, POC Negative Negative Urobilinogen, urine, POC 0.2 0.2 - 1.0 mg/dL Nitrite, ur, POC Positive(A) Negative Leukocytes, ur, POC Negative Negative Lot Number [id number] Urine 12/01/2024 10:1 6 AM CDT Mayra [...] ORAL) added in this encounter Care Teams Lithographed Plate Inspector Relationship Specialty Start Date End Date Ramya Ly MD PCP - General Internal Medicine 01/09/17 Deni Syed MD [address] [place] [address] Consulting Physician Rheumatology 03/14/23 documented as of this encounter
[2024-12-01 10:48] VITALS: BP 137/86; PULSE 83; RESP 18; TEMP 36.6; O2SAT 99
--- OUTSIDE RECORDS SUMMARY | 2024-12-01 11:34 | XMS_ITS | Encounter Summary ---
Author Organization [facility] Address [address] [place] [address] Care Team Providers Care Psychologist Personnel Name Role Phone Arnaldo Duarte MD Unavailable [phone] Monica Kumari Unavailable [phone] Maxine Armenta MD Unavailable [phone] Diana Ascencio MD Unavailable [phone] Ann Smith RN Unavailable Unavailable Nathaniel Browne MD Unavailable [phone] Tricia Mason MD Primary Care Provider [phone] Encounter Details Date Type Department Care Team (Late st Contact Info) Description 11/29/2024 Results Follow-Up [facility] - Endoscopy Services [address] [place] [address] Kyle Wakefield MD [address] [facility] [address] [place] [address] Social History Tobacco Use Types Packs/Day Years Used Date Smoking Tobacco: Never Smokeless Tobacco: Never Alcohol Use Standard Drinks/Week Comments Not Currently 0 (1 standard drink = 0.6 oz pur e alcohol) social AUDIT-C Answer Date Recorded Q1: How often do you have a drink containing alcohol? Never 10/18/2022 Q2: How many drinks containi ng alcohol do you have on a typical day when you are drinking? Patient does not drink Q3: How often do you have si x or more drinks on one occasion? Never 10/18/2022 Overall Financial Resource Strain (CARDIA) Answe r Date Recorded How hard is it for you to pa y for the very basics like food, housing, medical care, and heating? Not hard at all 10/18/2022 PHQ-2 Answer Date Recorded Patient Health Questionnaire-2 Score 0 08/23/2024 [facility] - Occupational Stress Questionnaire Answer Date Recorded Do you feel stress - tense, restless, nervous, or anxious, or unable to sleep at night because your mind is troubled all the time - these days? Not at all 10/18/2022 Hunger Vital Sign Answer Date Recorded Within the past 12 months, y ou worried that your food would run out before you got the money to buy more. Never true 10/19/19 23 Within the past 12 months, t he food you bought just didn't last and you didn't have money to get more. Never true 10/18/2022 PRAPARE - Transportation Answer Date Re corded In the past 12 months, has l ack of transportation kept you from medical appointments or from getting medications? No 10/08 In the past 12 months, has l ack of transportation kept you from meetings, work, or from getting things needed for daily living? No 10/18/2022 Housing Stability Vital Sign Answer Brandon e Recorded In the last 12 months, was t here a time when you were not able to pay the mortgage or rent on time? No 10/18/2022 In the last 12 months, how many places have you lived? 1 10/18/2022 In the last 12 months, was t here a time when you did not have a steady place to sleep or slept in a penitentiary (including now)? 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 Answer Date of Assessment Author No 06/20/2016 4:00 PM CDT Radha Coronel RN * Is person blind or have serious difficulty seeing? Answer Date of Assessment Author No 06/20/2016 4:00 PM CDT Radha Coronel RN * Does person have serious difficulty walking/climbing stairs? Answer Date of Assessment Author No 06/20/2016 4:00 PM CDT Radha Coronel RN * Does person have difficulty dressing/bathing? Answer Date of Assessment Author No 06/20/2016 4:00 PM CDT Radha Coronel RN * Does person have difficulty doing errands alone? Answer Date of Assessment Author No 06/20/2016 4:00 PM CDT Radha Coronel RN documented as of this encounter Mental Status * Does person have difficulty concentrating/remembering/making decisions? Answer Entry Date Author No 06/20/2016 4:00 PM CDT Radha Coronel RN documented in this encounter Plan of Treatment Upcoming Encounters Date Type Department Care Team (Late st Contact Info) Description 12/13/2024 9:30 AM CDT Office Visit [address] [phone] Dolores Velasquez, [employer]-HEADLINE WRITER [address] [place] [address] 02/22/2025 2:00 PM WATER USE INSPECTOR Office Visit [address] [address] Dolores Velasquez, [employer]-HEADLINE WRITER [address] [place] [address] 11/24/2025 3:00 PM CDT Office Visit [facility] - [facility] Services [address] [address] Arnaldo Duarte MD [address] [facility] [address] [place] [address] documented as of this encounter Goals Goal Patient Goal Type Associated Problems Recent Progress Patient-Stated? Author Blood Pressure < 140/90 Blood Pressure 135/89( 025 2:38 PM CDT) Lizeth Gilman documented as of this encounter Visit Diagnoses Not on filedocumented in this encounter Additional Health Concerns Infection Onset Date Last Indicated Resolved Time MRSA Hx 06/20/2016 06/20/2016 documented as of this encounter Care Teams Psychologist Personnel Relationship Specialty Start Date End Date Tricia Mason MD [address] [place] [address] PCP - General Family Medicine 08/23/24 [place] [address] [place] [address] [address] DIV OF PULMONARY[facility] [address] Pulmonary Disease 01/23/23 [place] [address] [place] [address] [address] DIV OF PULMONARY[facility] [address] Physician Print Manager 01/23/23 Maxine Armenta MD [address] [place] [address] Resident Psychiatry 01/23/23 Diana Ascencio MD [address] [place] [address] Internal Medicine 01/23/23 Ann Smith, bench assembler operator 04/11/23 Nathaniel Browne MD [address] [place] [address] Resident Psychiatry 07/01/24 Deni Syed, Physician Endoscopy 07/27/24 documented as of this encounter
--- OUTSIDE RECORDS SUMMARY | 2024-12-01 11:34 | XMS_ITS | Clinical Summary ---
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 consent was obtained. Prior Anticoagulants: The patient has taken no anticoagulant or antiplatelet agents. ASA Grade Assessment: II - A patient with mild systemic disease. After reviewing the risks and benefits, the patient was deemed in satisfactory condition to undergo the procedure. After I obtained informed consent, the scope was passed under direct vision. Throughout the procedure, the patient's blood pressure, pulse, and oxygen saturations were monitored continuously. The Colonoscope was introduced through the anus and advanced to the cecum, identified by appendiceal orifice and ileocecal valve. The colonoscopy was performed without difficulty. The patient tolerated the procedure well. The quality of the bowel preparation was fair. The ileocecal valve, appendiceal orifice, and rectum were photographed. Impression: - Preparation of the colon was fair. - Diverticulosis. - One 3 mm polyp in the ascending colon, removed with a jumbo cold forceps. Resected and retrieved. - One 2 mm polyp in the sigmoid colon, removed with a jumbo cold forceps. Resected and retrieved. Moderate Sedation: Moderate (conscious) sedation was personally administered by an anesthesia professional. The following parameters were monitored: oxygen saturation, heart rate, blood pressure, respiratory rate, EKG, adequacy of pulmonary ventilation, and response to care. Findings: Diverticula were found in the colon. A 3 mm polyp was found in the ascending colon. The polyp was sessile. The polyp was removed with a jumbo cold forceps. Resection and retrieval were complete. Estimated blood loss: none. A 2 mm polyp was found in the sigmoid colon. The polyp was sessile. The polyp was removed with a jumbo cold forceps. Resection and retrieval were complete. Estimated blood loss: none. _ Recommendation: - Written discharge instructions were provided to the patient. - The signs and symptoms of potential delayed complications were discussed with the patient. - Patient has a contact number available for emergencies. - Return to normal activities tomorrow. - Resume previous diet. - Continue present medications. - Await pathology results. - Repeat colonoscopy in 3 - 5 years for surveillance based on pathology results. Procedure Code(s): --- Professional --- 05770, Colonoscopy, flexible; with biopsy, single or multiple --- Technical --- 67140, Colonoscopy, flexible; with biopsy, single or multiple Diagnosis Code(s): --- Professional --- Z12.11, Encounter for screening for malignant neoplasm of colon D12.2, Benign neoplasm of ascending colon D12.5, Benign neoplasm of sigmoid colon K57.30, Diverticulosis of large intestine without perforation or abscess without bleeding --- Technical --- Z12.11, Encounter for screening for malignant neoplasm of colon D12.2, Benign neoplasm of ascending colon D12.5, Benign neoplasm of sigmoid colon K57.30, Diverticulosis of large intestine without perforation or abscess without bleeding CPT copyright 2022 [employer]. All rights reserved. The codes documented in this report are preliminary and upon veneer stapler review may be revised to meet current compliance requirements. Kyle Wakefield MD 11/05/2024 1:11:19 PM This report has been signed electronically. Number of Addenda: 0 Note Initiated On: 11/05/2024 12:24 PM [facility] 11/05/2024 12:2 4 PM CDT us Kyle Wakefield MD GI PROCEDURE ORDERABLES Edited R esult - Final [facility] * (ABNORMAL) LIPID PROFILE (01/13/2024 8:16 AM KITCHEN OPERATOR) Cholesterol 177 <200 mg/dL [facility] HDL Cholesterol 62 > OR = 50 mg/dL [facility] Triglycerides 62 <150 mg/dL [facility] LDL Calculated 101(H) mg/dL (calc) [facility] Comment: Reference range: <100 Desirable range <100 mg/dL for primary prevention; <70 mg/dL for patients with CHD or diabetic patients with > or = 2 CHD risk factors. LDL-C is now calculated using the Leo-Ashley calculation, which is a validated novel method providing better accuracy than the Friedewald equation in the estimation of LDL-C. Leo SS et al. SVETA. 2013;310(91): 3601-7330 (http://education.VR1/faq/RQH918) CHOL/HDLC RATIO 2.9 <5.0 (calc) [facility] Non HDL Cholesterol 115 <130 mg/dL (calc) [facility] Comment: For patients with diabetes plus 1 major ASCVD risk factor, treating to a non-HDL-C goal of <100 mg/dL (LDL-C of <70 mg/dL) is considered a therapeutic option. Test Performed at: [facility] [address] TYRA PINTO MD 01/13/2024 8:16 AM KITCHEN OPERATOR 01/13/2024 8:16 AM KITCHEN OPERATOR Dolores Velasquez FISH NET MAKER-MEDICATION TECH LAB - CHEMISTRY ORDERA BLES Final Result [address] [address] * MAMMOGRAM (09/26/2023) Anatomical Region Laterality Modality Other 09/26/2023 Narrative 09/26/2023 Ordered by an unspecified provider. us Scanned Document SCANNING ONLY Final Result * HEPATITIS C AB W/RFLX TO HCV RNA QN PCR (06/02/2023 7:23 AM CDT) Hepatitis C Antibody NON-REACTI VE NON-REACT CASSIUS [facility] Comment: HCV antibody was non-reactive. There is no laboratory evidence of HCV infection. In most cases, no further action is required. However, if recent HCV exposure is suspected, a test for HCV RNA (test code 32072) is suggested. For additional information please refer to http://education.Quantapore/faq/UZF38f7 (This link is being provided for informational/ educational purposes only.) Test Performed at: [facility] [address] [place] [address] TYRA PINTO MD 06/02/2023 7:23 AM CDT 06/02/2023 7:24 AM CDT Dolores Velasquez APRN-MEDICATION TECH LAB - CHEMISTRY ORDERA BLES Final Result [address] [address] * HEMOGLOBIN A1C (06/02/2023 7:23 AM CDT) Hemoglobin A1c 5.4 <5.7 % of total Hgb [facility] Comment: For the purpose of screening for the presence of diabetes: <5.7% Consistent with the absence of diabetes 5.7-6.4% Consistent with increased risk for diabetes (prediabetes) > or =6.5% Consistent with diabetes This assay result is consistent with a decreased risk of diabetes. Currently, no consensus exists regarding use of hemoglobin A1c for diagnosis of diabetes in children. According to [place] [employer] (ADA) guidelines, hemoglobin A1c <7.0% represents optimal control in non- diabetic patients. Different metrics may apply to specific patient populations. Standards of Medical Care in Diabetes(ADA). This test was performed on the Sarah lena c503 platform. Effective 05/26/23, a change in test platforms from the Morales Obie[employer] Architect to the Sarah lena c503 may have shifted HbA1c results compared to historical results. Based on laboratory validation testing conducted at [facility], the Sarah platform relative to the Morales platform had an average increase in HbA1c value of < or = 0.3%. This difference is within accepted variability established by the National Glycohemoglobin Standardization Program. Note that not all individuals will have had a shift in their results and direct comparisons between historical and current results for testing conducted on different platforms is not recommended. REPORT COMMENT: FASTING:YES Test Performed at: [facility] [address] TYRA PINTO MD 06/02/2023 7:23 AM CDT 06/02/2023 7:24 AM CDT Dolores D Velasquez FISH NET MAKER-MEDICATION TECH LAB - CHEMISTRY ORDERA BLES Final Result Performing Organization Address [facility] de Phone Number [facility] [address] [place] [address] * HIV-1 HIV-2 ANTIGEN/ANTIBODY W RFLX (01/13/2017 4:00 PM KITCHEN OPERATOR) HIV Screen 4th Generation w Reflex NON-REACT CASSIUS NON-REACT CASSIUS [facility] Comment: HIV-1 antigen and HIV-1/HIV-2 antibodies were not detected. There is no laboratory evidence of HIV infection. PLEASE NOTE: This information has been disclosed to you from records whose confidentiality may be protected by state law. If your state requires such protection, then the state law prohibits you from making any further disclosure of the information without the specific written consent of the person to whom it pertains, or as otherwise permitted by law. A general authorization for the release of medical or other information is NOT sufficient for this purpose. For additional information please refer to http://education.Quantapore/faq/WPX772 (This link is being provided for informational/ educational purposes only.) The performance of this assay has not been clinically validated in patients less than 2 years old. Test Performed at: [facility] [address] [place] [address] EAMON RIVERA DO,MPH Blood BLOOD SPECIMEN / Unknown 01/13/2017 4:00 PM KITCHEN OPERATOR 01/13/2017 4:01 PM KITCHEN OPERATOR Dolores Velasquez FISH NET MAKER-MEDICATION TECH LAB - SEROLOGY ORDERAB LES Final Result Performing Organization Address [facility] Co de Phone Number [facility] [address] [place] [address] from Last 3 Months or Most Recently Relevant to Health Maintenance Additional Health Concerns Infection Onset Date Last Indicated MRSA Hx 06/20/2016 06/20/2016 Insurance [facility] Advance Directives * Full Code (Latest Code Status on File) Date Activated Date Inactivated Comments 06/20/2016 3:17 PM 06/21/2016 4:27 PM * Full Code Date Activated Date Inactivated Comments 06/05/2015 5:24 PM 06/06/2015 3:11 PM * Full Code Date Activated Date Inactivated Comments 06/04/2015 3:09 PM 06/05/2015 5:24 PM * Full Code Date Activated Date Inactivated Comments 06/04/2015 1:25 PM 06/04/2015 3:09 PM Care Teams Tobacco Weigher Relationship Specialty Start Date End Date Tricia Mason MD [address] [place] [address] PCP - General Family Medicine 08/23/24 Arnaldo Duarte MD [address] DIV OF PULMONARY/[place] [address] Pulmonary Disease 01/23/23 Monica Kumari PA [address] [facility] [address] DIV OF PULMONARY/[place] [address] Physician Overnight Stocker 01/23/23 Maxine Armenta MD [address] [place] [address] Resident Psychiatry 01/23/23 Diana Ascencio MD [address] [place] [phone] Internal Medicine 01/23/23 Ann Smith, sales demonstrator 04/11/23 Nathaniel Browne MD [address] [place] [address] Resident Psychiatry 07/01/24 Deni Syed, Physician Endoscopy 07/27/24
--- OUTSIDE RECORDS SUMMARY | 2024-12-01 11:34 | XMS_ITS | Clinical Summary ---
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 lapse in dose she experiences increased pain and swelling. On 5mg prednisone daily due to intermittent flares and worsening when trying to taper in the past. Discussed that despite being a low dose there are still long-term side effects of steroids including DM, heart disease, htn, osteoporosis, weight gain, and others. She hasn't taken mtx in months due to n/v, which got better after she stopped it. Could consider trying SC mtx in the future if not doing well. Also stopped hcq due to concern about vision. Previously had inadequate response to xeljanz, enbrel, and orencia. vectra was 27 in 09/23. Will check labs today. F/u 3 months or sooner if needed Assessment & Plan (03/22/2022 4:28 PM FISCAL CLERK): cdai = 23, moderate On kevzara 200mg [id number] though has had delay in dosing due to shipping delays from pharmacy, which has led to increased flaring. On 5mg prednisone daily due to intermittent flares and worsening when trying to taper in the past. Discussed that despite being a low dose there are still long-term side effects of steroids including DM, heart disease, htn, osteoporosis, weight gain, and others. She hasn't taken mtx in months due to n/v, which got better after she stopped it. Could consider trying SC mtx in the future if not doing well. Also stopped hcq due to concern about vision. Previously had inadequate response to xeljanz, enbrel, and orencia. vectra was 27 in 09/23. Due to flare will give 100mg triamcinolone IM. Continue kevzara 200mg [id number]; I checked to see if we had sample but did not. Will check labs today. F/u 3 months or sooner if needed Assessment & Plan (11/05/2021 3:15 PM CDT): cdai = 4, low On mtx 20mg weekly, kevzara 200mg [id number]. On 5mg prednisone daily due to intermittent flares and worsening when trying to taper in the past. To see eye doctor next week due to altered vision and concern for HCQ use - has not been taking this as regularly (only about once a week). I advised her to just stop hcq altogether until she sees eye doctor and can advise if safe to continue. Notes about 1-2 hours of AM stiffness. Previously had inadequate response to xeljanz, enbrel, and orencia. vectra was 27 in 09/23. Will check labs today. Labs were attempted last visit but phlebotomists were unable to get a good stick. She tried to hydrate well today in preparation. F/u 3 months or sooner if needed Assessment & Plan (07/06/2021 12:49 PM CDT): cdai = 20, moderate On mtx 20mg weekly, plaquenil 200mg BID, and kevzara 200mg [id number]. On 5mg prednisone daily due to intermittent flares and worsening when trying to taper in the past. Has been working out more at the gym and is unsure if she is performing the exercises appropriately. To see eye doctor next week due to altered vision and concern for HCQ use - has not been taking this as regularly. Notes about 1-2 hours of AM stiffness. Synovitis present on exam with diffuse amount of tender peripheral joints. Appears to be in a flare. Due to burden of disease, will administer kenalog 100 mg IM injection, in office, today. Continue current regimen. Discussed working out with a certified personal finance counselor for a few sessions to ensure she is performing the exercises correctly/safely as this may be causing some of her shoulder/knee pain. Return in 4 weeks for re-evaluation. If still in a flare at that time she may require a change in medication. Labs today. Previously had inadequate response to xeljanz, enbrel, and orencia. vectra was 27 in 09/23. Assessment & Plan (01/23/2021 4:35 PM FISCAL CLERK): cdai = 12, low/mod Appears to be doing well on mtx 20mg weekly, plaquenil 200mg BID, and kevzara 200mg [id number]. On 5mg prednisone daily due to intermittent flares and worsening when trying to taper in the past. Previously had inadequate response to xeljanz, enbrel, and orencia. vectra was 27 in 09/23. Labs today. F/u 3 months or sooner if needed. Assessment & Plan (07/21/2020 2:47 PM CDT): cdai = 13, low/mod Tender to PIPs on exam though little synovitis. Appears to be doing well on mtx 20mg weekly, plaquenil 200mg BID, and kevzara 200mg [id number]. On 5mg prednisone daily due to intermittent flares and worsening when trying to taper in the past. Previously had inadequate response to xeljanz, enbrel, and orencia. vectra was 27 in 09/23. Labs today. F/u 3 months or sooner if needed. Assessment & Plan (04/21/2020 5:04 PM FISCAL CLERK): cdai = 10, low Stable on mtx 20mg weekly, plaquenil 200mg BID, and kevzara 200mg [id number]. On 5mg prednisone daily due to intermittent flares and worsening when trying to taper in the past. Previously had inadequate response to xeljanz, enbrel, and orencia. vectra was 27 in 09/23. Urged to get labs today as she was not able to complete the lab order last time. F/u 3 months or sooner if needed. 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 Assessment & Plan (12/10/2019 3:50 PM CDT): cdai = 12, low/moderate Stable on mtx 20mg weekly, plaquenil 200mg BID, and kevzara 200mg [id number]. On 5mg prednisone daily due to intermittent flares and worsening when trying to taper in the past. Previously had inadequate response to xeljanz, enbrel, and orencia. vectra was 27 in 09/23. Check labs today. F/u 3 months or sooner if needed. Assessment & Plan (07/23/2019 4:51 PM CDT): cdai = 13, moderate Usual regimen includes mtx 20mg weekly, plaquenil 200mg BID, and kevzara 200mg [id number], however she has not been taking her meds regularly due to pandemic concerns. On 5mg prednisone daily. Previously had inadequate response to xeljanz, enbrel, and orencia. vectra was 27 in 09/23. Discussed pandemic and data on RA patients and encouraged her to resume meds, only stop in the event of active infection. Check labs today. F/u 3 months or sooner if needed. Assessment & Plan (04/16/2019 2:50 PM FISCAL CLERK): cdai = 7, low On mtx 20mg weekly, plaquenil 200mg BID, and kevzara 200mg [id number]. Usual prednisone daily dose 5mg but as she still has occasional flares I do not think we will be able to taper her prednisone lower. Previously had inadequate response to xeljanz, enbrel, and orencia. vectra was 27 in 09/23. Check labs today. F/u 3 months or sooner if needed. Assessment & Plan (12/04/2018 3:06 PM CDT): cdai = 8 On mtx 20mg weekly, plaquenil 200mg BID, and kevzara 200mg [id number]. Recently had a flare and she increased her prednisone from 4mg daily to 8mg daily. She is feeling better now. Advised to try to taper back down to 4mg over the next week as long as doing ok. Previously had inadequate response to xeljanz, enbrel, and orencia. vectra was 27 in 09/23. Check labs today. F/u 3 months or sooner if needed. Assessment & Plan (07/30/2018 10:54 AM CDT): cdai = 5 On mtx 20mg weekly, prednisone 4mg daily, plaquenil 200mg BID, and kevzara 200mg [id number]. Joints appear stable. Previously had inadequate response to xeljanz, enbrel, and orencia. vectra was 27 in 09/23. Neg quantiferon 07/25. Check labs today. F/u 3 months or sooner if needed. Seen with Dr. Farnsworth. Assessment & Plan (04/16/2018 9:50 PM FISCAL CLERK): cdai = 8 On mtx 20mg weekly, prednisone 5mg daily, plaquenil 200mg BID, and kevzara 200mg [id number]. She appears to be doing well today and I did not detect any synovitis on exam. Will try to taper prednisone to 4mg daily. Previously had inadequate response to xeljanz, enbrel, and orencia. vectra was 27 in 09/23. Neg quantiferon 07/25. Check labs today. F/u 3 months or sooner if needed. Assessment & Plan (12/09/2017 4:03 PM CDT): cdai = 34 On mtx 20mg weekly, prednisone 5mg(occasional 10mg) daily. Pt feels like she is flaring more since having rotator cuff surgery 3 months ago. Hasn't taken plaquenil regularly lately due to blurred vision. Advised to hold it for now and make eye appt. On kevzara 200mg [id number]. Will give 100mg triamcinolone IM today. See how she is doing in 4-6 weeks and decide if we should change therapy. Previously had inadequate response to xeljanz, enbrel, and orencia. vectra was 27 in 09/23. Neg quantiferon 07/25. Check labs today. Seen with Dr. Farnsworth Assessment & Plan (07/21/2017 3:45 PM CDT): cdai = 49 On mtx, plaquenil, prednisone 5mg daily. On kevzara 200mg [id number] but she held this a few weeks ago due to nosebleeds/gum bleeding. Discussed that kevzara can cause low platelets which can cause bleeding. Advised pt she should have called us sooner so we could check labs and have closer f/u. She states she has had a lot of personal stress with deaths in the family recently. Will hold kevzara for now, get labs including CBC with manual diff. Will increase prednisone to 10mg daily and give 100mg triamcinolone IM today. Previously had inadequate response to xeljanz, enbrel, and orencia. vectra was 27 in 09/23. needs quantiferon with labs today also. Will have her back in 2 weeks to go over results and decide on plan. She may need to see ENT for epistaxis. Will give work note to be off the next [address] Farnsworth. Assessment & Plan (01/17/2017 2:02 PM FISCAL CLERK): cdai = 5 On mtx, plaquenil, prednisone 3mg daily. Has had 2 doses of kevzara 200mg [id number]. She is feeling better. Continue trying to taper prednisone 1mg/month. Previously had inadequate response to xeljanz and orencia. vectra was 27 which is lower than physical exam and clinical assessment suggest at the last visit. Had labs from pcp recently and wbc was slightly low at 3.6. Recommend repeating in about a month, also will need quantiferon again in 02/22. F/u 3 months. Assessment & Plan (09/20/2016 3:36 PM CDT): cdai = 31 On enbrel, mtx, plaquenil. Tapered prednisone to 5mg daily. Previously had inadequate response to xeljanz and orencia. Discussed changing biologics to try to get a better response and get off prednisone. Labs and vectra today. Consider u/s. neg quantiferon 02/22. Discussed trying for actemra or kevzara. Seen with Dr. Farnsworth. Biliary calculus 05/04/2013 Vitamin D deficiency 02/20/2012 Overview (06/14/2016): Vitamin d deficiency Inflammatory polyarthropathy 02/20/2012 Overview (06/14/2016): INFLAMM POLYARTHROP NOS Encounters Date Type Department Care Team Description 12/01/2024 10:00 AM CDT Office Visit [facility] [address] [id number] Mayra Burris NP Increased frequency of urination (Primary Dx); Left lower quadrant abdominal pain; Left lower quadrant abdominal tenderness without rebound tenderness 09/17/2024 2:00 PM CDT Office Visit [facility] [address] [place] [phone] Monica Kumari PA Seropositive rheumatoid arthritis of multiple sites (HCC) (Primary Dx); High risk medications (not anticoagulants) long-term use from Last 3 Months Immunizations Immunization Administration Dates Next Due Influenza, Quadrivalent, Josefina l Culture-based MDCK, Antibiotic Free, Intramuscular 12/10/2019 Influenza, Quadrivalent, Spl it, Intramuscular 01/23/2021 Influenza, Quadrivalent, Spl it, Preservative Free, Intramuscular 12/13/2022,12/11/2018,12/29/2014 Influenza, Trivalent, Cell C ulture-based MDCK, Preservative Free, Antibiotic Free, Intramuscular 12/22/2021 Influenza, Unspecified 12/10/2023 CX SARS-CoV-2 Monovalent Vaccination (12+ Yrs) PURPLE 12/13/2022,10/25/2020,04/07/2020 Pneumococcal Conjugate Pcv20 01/23/2023 Pneumococcal Polysaccharide PPV23 10/06/2013 Tdap 07/26/2020 ZOSTER Recombinant 07/30/2023,05/01/2023 Surgical History Surgery Date Site/Laterality Comments SECTION 1988 section OTHER SURGICAL HISTORY Arthrocentesis of the right knee medial suprapatellar pouch CHOLECYSTECTOMY 03/10/2014 - 03/09/2015 Cholecystectomy HYSTERECTOMY 03/10/2013 - 03/09/2014 one ovary remaining SHOULDER SURGERY 03/10/2017 - 03/09/2018 Right BREAST SURGERY 01/09/2024 - 02/07/2024 Bilateral gender affirming - bilateral mastectomy Medical History Medical History Date Comments Hx Other Medical 1984 seizures s/p MV A; Outcome: resolved Family History Medical History Relation Name Comments Heart disease Brother Hypertension Brother Lupus Brother Diabetes Father Hypertension Father Prostate cancer Father Thyroid disease Mother Heart disease Sister Hypertension Sister Relation Name Status Comments Brother Father Mother Sister Social History Tobacco Use Types Packs/Day Years Used Date Smoking Tobacco: Never Tobacco Cessation:Counseling Given: No Alcohol Use Standard Drinks/Week Comments Yes 0 (1 standard drink = 0.6 oz pur e alcohol) Comments Unknown Sex and Gender Information Value Date Recorded Sex Assigned at Female 10/28/2022 7:53 PM CDT Legal Sex Female 2:35 AM FISCAL CLERK Gender Identity Male 08/29/2022 2:30 PM CDT Sexual Orientation Not on file Obstetrics History Last Filed Vital Signs Vital Sign Reading Time Taken Comments Blood Pressure 132/80 12/01/2024 10:02 AM CDT Pulse 80 12/01/2024 10:02 AM CDT Temperature 36.7 C (98.1 F) 12/01/2024 10:02 AM CDT Respiratory Rate 18 12/01/2024 10:02 AM CDT Oxygen Saturation 97% 12/01/2024 10:02 AM CDT Inhaled Oxygen Concentration - - Weight 79.8 kg (176 lb) 12/01/2024 10:02 AM CDT Height 165.1 cm (5' 5) 09/17/2024 1:45 PM CDT Body Mass Index 29.29 09/17/2024 1:45 PM CDT Plan of Treatment Health Maintenance Due Date Last Done Comments Colon Cancer Screening-Colonoscopy 1965 Depression Screening 1965 Hepatitis C Screening 1965 Hepatitis B Screening 10/27/1983 Regular Well Visit/Exam 18-64 10/27/1983 Breast Cancer Screening-Mammogram 09/25/2024 09/26/2023, 08/12/2022, 05/23/2021, Additional history exists Covid-19 Vaccine (5 - 2024-2 6 season) 2024 12/13/2022, 10/25/2020, 04/28/2020, Additional history exists Influenza Vaccine (#1) 2024 , 12/13/2022, 12/22/2021, Additional history exists DTaP/Tdap/Td Vaccine (2 - Td or Tdap) 07/26/2030 07/26/2020 Pneumococcal vaccine <65 Completed 01/23/2023, 09/09 Zoster Vaccine Completed 07/30/2023, 05/01/2023 Procedures Procedure Name Priority Date/Time Associated Diagnosis Comments POCT URINALYSIS DIPSTICK Routine 12/01/2024 10:16 AM CDT Increased frequency of urination CBC WITH AUTO DIFFERENTIAL Routine 09/15/2024 8:03 AM CDT Abnormal CBC Encounter for long-term (current) use of high-risk medication SCREENING MAMMOGRAM BILATERAL W TADEO Schedule Routine, Read Routine (OP Routine) 09/26/2023 8:21 AM CDT Screening mammogram, encounter for from Last 3 Months or Most Recently Relevant to Health Maintenance Results * (ABNORMAL) POCT urinalysis dipstick (12/01/2024 10:16 AM CDT) Color, Urine, POC Cache Clarity, ur, POC Clear Clear Glucose, ur, POC 100.(A) Negative Bilirubin, ur, POC Negative Negative Comment:n Ketones, ur, POC Negative Negative Specific Soldier, POC 1.010 1.003 - 1.030 Blood, ur, POC Trace(A) Negative pH, ur, POC 6.0 5.0 - 8.0 Protein, ur, POC Negative Negative Urobilinogen, urine, POC 0.2 0.2 - 1.0 mg/dL Nitrite, ur, POC Positive(A) Negative Leukocytes, ur, POC Negative Negative Lot Number [id number] Urine 12/01/2024 10:1 6 AM CDT Mayra Burris NP POINT OF CARE TEST ORDERABLES F inal Result * (ABNORMAL) CBC with auto differential (09/15/2024 8:03 AM CDT) WBC 4.2 3.8 - 10.8 Thousand/u L [facility] RBC, POC 4.67 3.80 - 5.10 Million/uL [facility] Hgb 15.0 11.7 - 15.5 g/dL [facility] Hct 45.1(H) 35.0 - 45.0 % [facility] MCV 96.6 80.0 - 100.0 fL [facility] MCH 32.1 27.0 - 33.0 pg [facility] MCHC 33.3 32.0 - 36.0 g/dL [facility] Comment: For adults, a slight decrease in the calculated MCHC value (in the range of 30 to 32 g/dL) is most likely not clinically significant; however, it should be interpreted with caution in correlation with other red cell parameters and the patient's clinical condition. Rdw 12.3 11.0 - 15.0 % [facility] Platelets 220 140 - 400 Thousand/u L [facility] MPV 11.3 7.5 - 12.5 fL [facility] Neutrophils, abs 1,798 1,500 - 7,800 cells/uL [facility] Lymphocytes, abs 1,772 850 - 3,900 cells/uL [facility] Monocyte abs 491 200 - 950 cells/uL [facility] Eosinophils, abs 109 15 - 500 cells/uL [facility] Basophils, abs 29 0 - 200 cells/uL [facility] Neutrophils 42.8 % [facility] Lymphocyte pct 42.2 % [facility] Monocytes 11.7 % [facility] Eosinophils 2.6 % [facility] Basophils 0.7 % [facility] Blood 09/15/2024 8:03 AM CDT 09/15/2024 8:04 AM CDT Monica ARELLANO LAB BLOOD ORDERABLES [facility] al Result Performing Organization Address City/State/[facility] Co de Phone Number ASH[facility] [address] [place] [address] [place] [address] * Screening Mammogram Bilateral W Tadeo (09/26/2023 8:21 AM CDT) Anatomical Region Laterality Modality Breast Bilateral Mammography Narrative 09/29/2023 10:48 AM CDT Mammogram Technique: Bilateral Digital Breast Tomosynthesis, Bilateral C-view 2D Screening mammogram. Views obtained: bilateral craniocaudal and bilateral mediolateral oblique. Computer Aided Detection was performed. Mammogram Findings: The present examination has been compared to prior imaging studies performed at [facility] on 05/23/2021, at [place], [place] on 01/16/2007, and at [place], [place] on 04/12/2016. There are scattered areas of fibroglandular density. There is no suspicious abnormality in either breast. Impression: There is no mammographic evidence of malignancy. Annual screening mammography is recommended. OVERALL FINAL ASSESSMENT: BI-RADS CATEGORY 1: Negative. Procedure Note Jovanna Magana MD - 09/29/2023 Mammogram Technique: Bilateral Digital Breast Tomosynthesis, Bilateral C-view 2D Screening mammogram. Views obtained: bilateral craniocaudal and bilateral mediolateral oblique. Computer Aided Detection was performed. Mammogram Findings: The present examination has been compared to prior imaging studies performed at [facility] on 05/23/2021, at [place], [place] on 01/16/2007, and at [place], [place] on 04/12/2016. There are scattered areas of fibroglandular density. There is no suspicious abnormality in either breast. Impression: There is no mammographic evidence of malignancy. Annual screening mammography is recommended. OVERALL FINAL ASSESSMENT: BI-RADS CATEGORY 1: Negative. us Self Screening Mammogram IMG MAMMO PROCEDURES Fi nal Result from Last 3 Months or Most Recently Relevant to Health Maintenance Insurance [employer] ACCESS CHOICE ANTHEM ACCESS CHOICE ANTHEM ACCESS CHOICE ANTHEM ACCESS CHOICE Care Teams Production Control Scheduler Relationship Specialty Start Date End Date Ramya Ly MD PCP - General Internal Medicine 01/09/17 Deni Syed MD [address] [place] [address] Consulting Physician Rheumatology 03/14/23
[2024-12-01 12:09] LABS: Hematocrit 43.8 % (42.0-52.0); Hemoglobin 14.9 g/dL (14.0-18.0); Immature Granulocyte Percent A 0.4 % (0-0.5); Lymphocytes Absolute Auto 0.67 K/mm3 (0.9-3.2); Mean Corpuscular HGB Conc 34.0 g/dl (32-36); Mean Corpuscular Hemoglobin 31.7 pg (26-34); Mean Corpuscular Volume 93.2 fl (80-100); Nucleated Red Blood Cells Absolute Auto 0.000 K/mm3 (0.0-0.012); Nucleated Red Blood Cells Perc 0.0 % (0.0-0.2); Platelet Count Result 173 k/mm3 (150-375); Red Blood Count 4.70 M/mm3 (4.6-6.20); White Blood Count 6.9 K/mm3 (4.5-10.0)
[2024-12-01 12:21] LABS: Alanine Aminotransferase 21 U/L (6-50); Albumin Level 4.3 g/dL (3.5-5.1); Alkaline Phosphatase 70 U/L (38-126); Anion Gap 7 mmol/L (4-12); Aspartate Amino Transferase 29 U/L (17-59); Bilirubin,Total 1.9 mg/dL (0.2-1.3); Blood Urea Nitrogen 13 mg/dL (9-20); Calcium 9.1 mg/dL (8.4-10.2); Carbon Dioxide 27 mmol/L (22-30); Chloride 101 mmol/L (98-107); Estimated CRCL calculation 59 ml/min; Estimated Glomerular Filt Rate > 60; Glucose 93 mg/dL (65-110); Potassium 3.7 mmol/L (3.4-5.0); Sodium 135 mmol/L (137-145); Total Protein 8.3 g/dL (6.3-8.2)
--- OUTSIDE RECORDS SUMMARY | 2024-12-01 12:30 | XMS_ITS | Clinical Summary ---
Author Organization [place] [id number] Address [address] [place] [address] Phone Care Team Providers Care Cad Specialist Name Role Phone Ramya Ly MD Primary Care Provider [phone] Deni Syed MD Unavailable [phone] Allergies Active Allergy Reactions Criticality Noted Date [...] needle, disp, 18 G (BD Regular Bevel Jefferson) 18 gauge x 1 needleIndicatio ns:Transgender USE [...] 02/14/2023 Assessment & Plan (03/14/2023 4:14 PM ASSISTANT COUNSEL): See above discussion Assessment & Plan (02/14/2023 5:51 PM ASSISTANT COUNSEL): See above discussion Transgender 10/28/2022 Bipolar II [...] was effective in ameliorating obstructive sleep apnea. USP current use of systemic steroids 12/09 Assessment & Plan (07/06/2021 12:43 PM CDT): Discussed again getting an updated BMD. Continue 1000mg calcium in divided doses daily and vit D 800-1000iu daily. Assessment & Plan (01/23/2021 4:36 PM ASSISTANT COUNSEL): Will order baseline BMD. Also discussed taking at least 1000mg calcium in divided doses daily and vit D 800-1000iu daily Assessment & Plan (04/21/2020 10:28 AM ASSISTANT COUNSEL): Will order baseline BMD. Also discussed taking [...] ultrasound. Assessment & Plan (04/21/2020 10:29 AM ASSISTANT COUNSEL): No recent imaging. Pain with activity and [...] 04/16/2018 Assessment & Plan (04/16/2018 9:55 PM ASSISTANT COUNSEL): Pt reports intermittent rash between buttocks. Today [...] cxr 12/26 Lipids checked in 08/26 utd [id number]. Recommend to get Irpxsxd09 and Shingrix. Had COVID vaccine and booster. had fall booster Flu shot yearly Assessment & Plan (04/16/2024 4:42 PM ASSISTANT COUNSEL): Neg TB 10/29. Will recheck since pt works in [employer] - ordered in 07/31 and again in 01/31 but did not get done with the rest of labs for some reason. Will order again today Normal cxr 12/26 Lipids checked in 08/26 utd [id number]. Recommend to get Xmkcbct60 and Shingrix. Had COVID vaccine and booster. had fall booster Flu shot yearly Assessment & Plan (01/16/2024 3:26 PM ASSISTANT COUNSEL): Neg TB 10/29. Will recheck since pt works in [employer] - ordered in 07/31 but did not get done with the rest of labs for some reason. Will order again at next visit Normal cxr 10 Lipids checked in 08/26 utd lyubgqmka91. Recommend to get Dqbatsp88 and Shingrix. Had COVID vaccine and booster. had fall booster Flu shot yearly Assessment & Plan (10/16/2023 3:34 PM CDT): Neg TB 8. Will recheck since pt works in [employer] - ordered in 07/31 but did not get done with the rest of labs for some reason. Will order again at next visit Normal cxr 10/19 Lipids checked in 08/26 utd nftkrbebo51. Recommend to get Yzdqslr98 and Shingrix. Had COVID vaccine and booster. had fall booster Flu shot yearly Assessment & Plan (07/17/2023 4:11 PM CDT): Neg TB 8. Will recheck since pt works in [employer] Normal cxr 10/19 Lipids checked in 08/26 utd sjstitehn44. Recommend to get Iclusex34 and Shingrix. Had COVID vaccine and booster. had fall booster Flu shot yearly Assessment & Plan (05/16/2023 3:27 PM ASSISTANT COUNSEL): Neg TB 8 Normal cxr 10/19 Lipids checked in 08/26 utd obqnvrrnq78. Recommend to get Mmftidh44 and Shingrix. Had COVID vaccine and booster. had fall booster Flu shot yearly Assessment & Plan (03/14/2023 4:13 PM ASSISTANT COUNSEL): Neg TB 8/ Normal cxr 10/19 Lipids checked in 08/26 utd plswgclob42. Recommend to get Kfhbvot92 and Shingrix. Had COVID vaccine and booster. had fall booster Flu shot yearly Still needs BMD due to age/postmenopausal and long-term use of low dose steroids. Assessment & Plan (02/14/2023 5:51 PM ASSISTANT COUNSEL): Neg TB 8 Normal cxr 10/19 Lipids checked in 08/26 utd tvkrewadn31. Recommend to get Nsvepiv89 and Shingrix. Had COVID vaccine and booster. had fall booster Flu shot yearly Still needs BMD due to age/postmenopausal and long-term use of low dose steroids. Assessment & Plan (12/12/2022 3:06 PM CDT): Neg TB 8/22 Normal cxr 10/19 Lipids checked in 6/19 utd ufzvlcnpw42. Recommend to get Qvhqelf33 and Shingrix. Had COVID vaccine and booster. Getting fall booster tomorrow Flu shot tomorrow also Still needs BMD due to age/postmenopausal and long-term use of low dose steroids. Assessment & Plan (10/03/2022 3:08 PM CDT): Neg TB 8/22 Normal cxr 10/19 Lipids checked in 6/19 utd gyromygvq23 and flu (2020). Recommend to get Gaduphz37 and Shingrix. Had COVID vaccine and booster Still needs BMD due to age/postmenopausal and long-term use of low dose steroids. Assessment & Plan (06/21/2022 1:05 PM CDT): Neg TB 8/22 Normal cxr 10/19 Lipids checked in 6/19 utd vmzawdizz12 and flu (2020). Recommend to get Nzefccf09 and Shingrix. Had COVID vaccine and booster Still needs BMD due to age/postmenopausal and long-term use of low dose steroids. Assessment & Plan (03/22/2022 4:32 PM ASSISTANT COUNSEL): Neg TB 8/22 Normal cxr 10/19 Lipids checked in 6/19 utd and flu (2020). Recommend to get Qtslrdy47 and Shingrix. Had COVID vaccine and booster Still needs BMD due to age/postmenopausal and long-term use of low dose steroids. Assessment & Plan (11/05/2021 12:51 PM CDT): Neg quantiferon 2/21 Normal cxr 10/19 Lipids checked in 6/19 utd bodcmxhiv64 and flu (2020). Recommend to get Ylbwdbh78 and Shingrix. Had COVID vaccine and booster Still needs BMD due to age/postmenopausal and long-term use of low dose steroids. Assessment & Plan (07/06/2021 12:36 PM CDT): Neg quantiferon 2/21 Normal cxr 10/19 Lipids checked in 08/26 utd xkapewpeh51 and flu (2020). Recommend to get Odkdkkp33 and Shingrix. Had COVID vaccine and booster Still needs BMD due to age/postmenopausal and long-term use of low dose steroids. Assessment & Plan (01/23/2021 4:35 PM ASSISTANT COUNSEL): Neg quantiferon 2/21 Normal cxr 10/19 Lipids checked in 08/26 Flu shot today. utd agtqisrjw29. Recommend to get Aititwv94 and Shingrix. Had COVID vaccine and booster Still needs BMD due to age/postmenopausal and long-term use of low dose steroids. New order given Assessment & Plan (07/21/2020 2:48 PM CDT): Neg quantiferon 2/21 Normal cxr 10/19 Lipids checked in 08/26 utd flu shot. utd cqmyxnkoe10. Recommend to get Lxtrsrp87 and Shingrix. Had COVID vaccine. Still needs BMD due to age/postmenopausal and long-term use of low dose steroids. Assessment & Plan (04/21/2020 5:07 PM ASSISTANT COUNSEL): Neg quantiferon 5/19 Normal cxr 10/19 Lipids checked in 08/26 utd flu shot. utd . Recommend to get Awzpumu10 and Shingrix. Still needs BMD due to age/postmenopausal and long-term use of low dose steroids. Assessment & Plan (12/10/2019 3:51 PM CDT): Neg quantiferon 5/19 Normal cxr 10/19 Lipids checked in 08/26 Recommend yearly flu shot, will do today. utd zukwhmack82. Recommend to get Wchfdpd52 and Shingrix. Will order BMD due to age/postmenopausal and long-term use of low dose steroids. Assessment & Plan (07/23/2019 4:51 PM CDT): Neg quantiferon 5/19 Normal cxr 10/19 Lipids checked in 08/26 Recommend yearly flu shot. utd tbeypplpw85. Recommend to get Raymzsx00 and Shingrix. Assessment & Plan (04/16/2019 2:22 PM ASSISTANT COUNSEL): Neg quantiferon 5/19 Normal cxr 12/26 Lipids checked in 08/26 Recommend yearly flu shot. utd zdzgntjhi12. Recommend to get Ezcqwkl87 and Shingrix. Assessment & Plan (12/04/2018 10:23 AM CDT): Neg quantiferon 5/19 Normal cxr 09/23 Lipids checked in 08/26 Recommend yearly flu shot. utd npshhsxxu15. Recommend to get Zrxvcjr21 and Shingrix. Assessment & Plan (07/30/2018 10:57 AM CDT): Neg quantiferon 5/18 Normal cxr 09/23 Assessment & Plan (04/16/2018 9:53 PM ASSISTANT COUNSEL): Neg quantiferon 5/18 Normal cxr 17 Assessment [...] 02/21, 02/22, 07/25 Positive RF, CCP, ADITHYA, REPORTING SPECIALIST vectra 27 in 09/23 Assessment & Plan (09/17/2024 5:11 PM CDT): cdai = 15, moderate Hx +RF, CCP, ADITHYA, and REPORTING SPECIALIST. Tx hx: On Kevzara for years. Added [...] needed Assessment & Plan (04/16/2024 4:42 PM ASSISTANT COUNSEL): cdai = 22, moderate Hx +RF, CCP, ADITHYA, and REPORTING SPECIALIST. Has been on kevzara 200mg s8pcaap for several years along with low dose [...] needed Assessment & Plan (01/16/2024 3:53 PM ASSISTANT COUNSEL): cdai = 25, high Had been on kevzara 200mg a2ucqwy for several years along with 5mg prednisone [...] because Kevzara shipment was held up by [employer], having issue with pt's info being under 2 accounts. Omar called [employer] earlier today and hopefully the problem will be taken care of, shipment ready to send. Will give 100mg IM kenalog due to flare. Take next dose MT then hold the subsequent dose until 2 weeks after surgery. Labs today. F/u 3 months, sooner if needed Assessment & Plan (10/16/2023 3:36 PM CDT): cdai = 1, low Had been on kevzara 200mg t0kkcnf for several years along with 5mg prednisone [...] 6, pavan Had been on kevzara 200mg i7vfjrc for several years along with 5mg prednisone [...] needed Assessment & Plan (05/16/2023 3:27 PM ASSISTANT COUNSEL): cdai = 27, high Had been on kevzara 200mg s1agdvb for several years along with 5mg prednisone [...] needed Assessment & Plan (03/14/2023 4:13 PM ASSISTANT COUNSEL): cdai = 2, low On kevzara 200mg z9qavek. Added leflunomide 20mg as steroid-sparing agent in [...] needed Assessment & Plan (02/14/2023 5:51 PM ASSISTANT COUNSEL): cdai = 8, low On kevzara 200mg d0pohfp. Added leflunomide 20mg as steroid-sparing agent in [...] cdai = 0, low/remission On kevzara 200mg n0hezzj. On 5mg prednisone daily due to intermittent [...] cdai = 6, low On kevzara 200mg r6labzg. On 5mg prednisone daily due to intermittent [...] cdai = 11, low/moderate On kevzara 200mg b3vtlob and she reports good control of symptoms [...] needed Assessment & Plan (03/22/2022 4:28 PM ASSISTANT COUNSEL): cdai = 23, moderate On kevzara 200mg d6infzk though has had delay in dosing due [...] give 100mg triamcinolone IM. Continue kevzara 200mg f5rwjny; I checked to see if we had sample but did not. Will check labs today. F/u 3 months or sooner if needed Assessment & Plan (11/05/2021 3:15 PM CDT): cdai = 4, low On mtx 20mg weekly, kevzara 200mg o5nqsdu. On 5mg prednisone daily due to intermittent [...] weekly, plaquenil 200mg BID, and kevzara 200mg a3kgscm. On 5mg prednisone daily due to intermittent [...] current regimen. Discussed working out with a head animal trainer for a few sessions to ensure she [...] 09/23. Assessment & Plan (01/23/2021 4:35 PM ASSISTANT COUNSEL): cdai = 12, low/mod Appears to be doing well on mtx 20mg weekly, plaquenil 200mg BID, and kevzara 200mg t6rhmmg. On 5mg prednisone daily due to intermittent [...] weekly, plaquenil 200mg BID, and kevzara 200mg v4dkkay. On 5mg prednisone daily due to intermittent flares and worsening when trying to taper in the past. Previously had inadequate response to xeljanz, enbrel, and orencia. vectra was 27 in 09/23. Labs today. F/u 3 months or sooner if needed. Assessment & Plan (04/21/2020 5:04 PM ASSISTANT COUNSEL): cdai = 10, low Stable on mtx 20mg weekly, plaquenil 200mg BID, and kevzara 200mg m7rrnes. On 5mg prednisone daily due to intermittent [...] weekly, plaquenil 200mg BID, and kevzara 200mg e7wvzlq. On 5mg prednisone daily due to intermittent [...] weekly, plaquenil 200mg BID, and kevzara 200mg l1cyque, however she has not been taking her [...] needed. Assessment & Plan (04/16/2019 2:50 PM ASSISTANT COUNSEL): cdai = 7, low On mtx 20mg weekly, plaquenil 200mg BID, and kevzara 200mg q2omdee. Usual prednisone daily dose 5mg but as [...] weekly, plaquenil 200mg BID, and kevzara 200mg y7eeeqi. Recently had a flare and she increased [...] daily, plaquenil 200mg BID, and kevzara 200mg a1alojo. Joints appear stable. Previously had inadequate response to xeljanz, enbrel, and orencia. vectra was 27 in 09/23. Neg quantiferon 07/25. Check labs today. F/u 3 months or sooner if needed. Seen with Dr. Farnsworth. Assessment & Plan (04/16/2018 9:50 PM ASSISTANT COUNSEL): cdai = 8 On mtx 20mg weekly, prednisone 5mg daily, plaquenil 200mg BID, and kevzara 200mg l9vjwgn. She appears to be doing well today [...] and make eye appt. On kevzara 200mg e9puxqy. Will give 100mg triamcinolone IM today. See [...] plaquenil, prednisone 5mg daily. On kevzara 200mg t6rjwns but she held this a few weeks [...] Farnsworth. Assessment & Plan (01/17/2017 2:02 PM ASSISTANT COUNSEL): cdai = 5 On mtx, plaquenil, prednisone 3mg daily. Has had 2 doses of kevzara 200mg r0khplq. She is feeling better. Continue trying to [...] Description 12/01/2024 10:00 AM CDT Office Visit [facility] at [address] [address] Mayra Burris NP Increased frequency of urination (Primary Dx); Left lower quadrant abdominal pain; Left lower quadrant abdominal tenderness without rebound tenderness 09/17/2024 2:00 PM CDT Office Visit [facility] [address] [place] [phone] Monica Kumari PA Seropositive rheumatoid arthritis [...] Antibiotic Free, Intramuscular 12/22/2021 Influenza, Unspecified 12/10/2023 [employer] SARS-CoV-2 Monovalent Vaccination (12+ Yrs) PURPLE 12/13/2022,10/25/2020,04/07/2020 [...] PM CDT Legal Sex Female 2:35 AM ASSISTANT COUNSEL Gender Identity Male 08/29/2022 2:30 PM CDT [...] (12/01/2024 10:16 AM CDT) Color, Urine, POC Iron Clarity, ur, POC Clear Clear Glucose, ur, POC 100.(A) Negative Bilirubin, ur, POC Negative Negative Comment:n Ketones, ur, POC Negative Negative Specific Lilly, POC 1.010 1.003 - 1.030 Blood, ur, POC Trace(A) Negative pH, ur, POC 6.0 5.0 - 8.0 Protein, ur, POC Negative Negative Urobilinogen, urine, POC 0.2 0.2 - 1.0 mg/dL Nitrite, ur, POC Positive(A) Negative Leukocytes, ur, POC Negative Negative Lot Number [id number] Urine 12/01/2024 10:1 6 AM CDT Mayra Burris NP POINT OF CARE TEST ORDERABLES F inal Result * (ABNORMAL) CBC with auto differential (09/15/2024 8:03 AM CDT) WBC 4.2 3.8 - 10.8 Thousand/u L [facility] RBC, POC 4.67 3.80 - 5.10 Million/uL [facility] Hgb 15.0 11.7 - 15.5 g/dL [facility] Hct 45.1(H) 35.0 - 45.0 % [facility] [...] AM CDT 09/15/2024 8:04 AM CDT Monica AERLLANO LAB BLOOD ORDERABLES [facility] al Result Performing Organization Address City/State/[facility] Co de Phone Number ASH[facility] [address] [place] [address] * Screening Mammogram Bilateral W Tadeo (09/26/2023 8:21 AM CDT) Anatomical Region Laterality Modality Breast Bilateral Mammography Narrative 09/29/2023 10:48 AM CDT Mammogram Technique: Bilateral Digital Breast Tomosynthesis, Bilateral C-view 2D Screening mammogram. Views obtained: bilateral craniocaudal and bilateral mediolateral oblique. Computer Aided Detection was performed. Mammogram Findings: The present examination has been compared to prior imaging studies performed at [facility] on 05/23/2021, at [place], [place] on 01/16/2007, and at [place], [place] on 04/12/2016. There are scattered areas [...] compared to prior imaging studies performed at [facility] on 05/23/2021, at [place], [place] on 01/16/2007, and at [place], [place] on 04/12/2016. There are scattered areas of fibroglandular density. There is no suspicious abnormality in either breast. Impression: There is no mammographic evidence of malignancy. Annual screening mammography is recommended. OVERALL FINAL ASSESSMENT: BI-RADS CATEGORY 1: Negative. us Self Screening Mammogram IMG MAMMO PROCEDURES Fi nal Result from Last 3 Months or Most Recently Relevant to Health Maintenance Insurance [facility] ACCESS CHOICE ANTHEM ACCESS CHOICE ANTHEM ACCESS CHOICE ANTHEM ACCESS CHOICE Care Teams Cad Specialist Relationship Specialty Start Date End Date Ramya Ly MD PCP - General Internal Medicine 01/09/17 Deni Syed MD [address] [place] [address] Consulting Physician Rheumatology 03/14/23
--- OUTSIDE RECORDS SUMMARY | 2024-12-01 12:30 | XMS_ITS | Encounter Summary ---
Author Organization [facility] Address [address] [place] [address] Care Team Providers Care Getterer Name Role Phone Arnaldo Duarte MD Unavailable [phone] Monica Kumari Unavailable [phone] Maxine Armenta MD Unavailable Diana Ascencio MD Unavailable [phone] Ann Smith RN Unavailable Unavailable Nathaniel Browne MD Unavailable [phone] Tricia Mason MD Primary Care Provider [phone] Encounter Details Date Type Department Care Team (Late st Contact Info) Description 11/29/2024 Results Follow-Up [facility] - Endoscopy Services [address] [place] [address] Kyle Wakefield MD [address] [facility] [address] [place] [address] Social History Tobacco Use Types [...] Recorded Patient Health Questionnaire-2 Score 0 08/23/2024 [facility] - Occupational Stress [...] place to sleep or slept in a detention (including now)? 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 Not on file Not on file Not [...] 12/13/2024 9:30 AM CDT Office Visit [address] [phone] Dolores Velasquez, DIGITAL SALES PLANNER-MEMBERSHIP ADMINISTRATOR [address] [place] [address] 02/22/2025 2:00 PM FRONT LINE LEADER Office Visit [address] [phone] Dolores Velasquez, DIGITAL SALES PLANNER-MEMBERSHIP ADMINISTRATOR [address] [place] [address] 11/24/2025 3:00 PM CDT Office Visit [facility] - [facility] [address] [address] Arnaldo Duarte MD [address] [facility] [address] [place] [address] documented as of this encounter Goals Goal Patient Goal Type Associated Problems Recent Progress Patient-Stated? Author Blood Pressure < 140/90 Blood Pressure 135/89( 025 2:38 PM CDT) Lizeth Gilman documented as of this encounter Visit Diagnoses Not on filedocumented in this encounter Additional Health Concerns Infection Onset Date Last Indicated Resolved Time MRSA Hx 06/20/2016 06/20/2016 documented as of this encounter Care Teams Getterer Relationship Specialty Start Date End Date Tricia Mason MD [address] [place] [address] PCP - General Family Medicine 08/23/24 [place] [address] [place] [address] [address] DIV OF PULMONARY/[place] [address] Pulmonary Disease 01/23/23 [place] [address] [place] [address] [address] DIV OF PULMONARY/[place] [address] Physician Nursery School Teacher 01/23/23 Maxine Armenta MD [address] [place] [address] Resident Psychiatry 01/23/23 Diana Ascencio MD [address] [place] [address] Internal Medicine 01/23/23 Ann Smith, director of application development 04/11/23 Nathaniel Browne MD [address] [place] [address] Resident Psychiatry 07/01/24 Deni Syed, Physician Endoscopy 07/27/24 documented as of this encounter
--- OUTSIDE RECORDS SUMMARY | 2024-12-01 12:30 | XMS_ITS | Clinical Summary ---
Author Organization [facility] Realie Address [address] [facility] [place] [address] Care Team Providers Care Resin Painter Name Role Phone Arnaldo Duarte MD Unavailable [phone] Monica Kumari Unavailable [phone] Maxine Armenta MD Unavailable [phone] Diana Ascencio MD Unavailable [phone] nAn Smith RN Unavailable Unavailable Nathaniel Browne MD Unavailable [phone] Tricia Mason MD Primary Care Provider [phone] [facility],non-owned Affiliates and Associated Physician Practices is amultiple site organization consisting of ambulatory clinics and hospital sitesin [place], [place], [place] and [place]. This disclosure is being madepursuant to the Care Everywhere program and may not contain all information available regarding this patient. Last updated 17.[facility] Allergies Active Allergy Reactions Criticality Noted Date [...] fluticasone propionate (Flonase) 50 MCG/ACT nasal spray [place] 2 (two) sprays into each nostril once [...] migh t be different from the original. [facility] 03/2016 Problem Noted Date Diagnosed Date Neutropenia [...] improved may need MRI or MSK ultrasound. prison current use of systemic steroids 12/09 Overview [...] checked in 08/26 utd flu shot. utd [id number]. Recommend to get [id number] and Shingrix. Had COVID vaccine. Still needs [...] 02/21, 02/22, 07/25 Positive RF, CCP, ADITHYA, SPOUTING INSTALLER vectra 27 in 09/23 Last Assessment & Plan: cdai = 13, moderate Usual regimen includes mtx 20mg weekly, plaquenil 200mg BID, and kevzara 200mg [id number], however she has not been taking her [...] 02/21, 02/22, 07/25 Positive RF, CCP, ADITHYA, SPOUTING INSTALLER vectra 27 in 09/23 Vitamin D deficiency 02/20/2012 Overview (07/26/2020): Vitamin d deficiency Inflammatory polyarthropathy 02/20/2012 Overview (07/26/2020): INFLAMM POLYARTHROP NOS HTN (hypertension) Mild intermittent asthma without complication Resolved Problems Problem Noted Date Diagnosed Date Resolved Date 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 Recently had a flare and she increased [...] 02/21, 02/22, 07/25 Positive RF, CCP, ADITHYA, SPOUTING INSTALLER vectra 27 in 09/23 Last Assessment & Plan: cdai = 13, low/mod Tender to PIPs on exam though little synovitis. Appears to be doing well on mtx 20mg weekly, plaquenil 200mg BID, and kevzara 200mg [id number]. On 5mg prednisone daily due to intermittent flares and worsening when trying to taper in the past. Previously had inadequate response to xeljanz, enbrel, and orencia. vectra was 27 in 09/23. Labs today. F/u 3 months or sooner if needed. Seizure disorder 02/02/2023 Encounters Date Type Department Care Team Description 11/29/2024 Results Follow-Up [facility] - Endoscopy Services [address] [place] [address] Kyle Wakefield MD 11/24/2024 3:00 PM CDT Office Visit [facility] - Sleep Services [address] [place] [address] Arnaldo Duarte MD VANDANA (obstructive sleep apnea) (Primary Dx) 11/24/2024 Travel 11/10/2024 Travel 11/05/2024 12:38 PM CDT Anesthesia Event [facility] - [facility]oscopy Services [address] [place] [address] Norberto Shirley MD 11/05/2024 12:00 PM CDT - 11/05/2024 12:30 PM CDT Surgery [facility] - Endoscopy Services [address] [place] [address] Kyle Wakefield MD COLONOSCOPY SCREEN 11/05/2024 10:42 AM CDT - 11/05/2024 2:30 PM CDT Hospital Encounter [facility]oscopy [facility] [address] [place] [address] Kyle Wakefield MD Surgery General Discharge Disposition: Home or Self Care 11/05/2024 Travel 09/16/2024 Refill [facility] [address] [place] [address] Tricia Mason MD MEDICATION REFILL 09/16/2024 Orders Only [facility] - GI [address] [facility] [address] [place] [address] Kyle Wakefield MD Screening for colon cancer 09/15/2024 Refill [facility] [address] [place] [address] Tricia Mason MD MEDICATION REFILL from Last [...] Recorded Patient Health Questionnaire-2 Score 0 08/23/2024 [facility] - Occupational [...] place to sleep or slept in a usp (including now)? 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 file Not on file Not [...] Description 12/13/2024 9:30 AM CDT Office Visit [address] [phone] Dolores Velasquez, APRICOT WASHER-SUPPLY COORDINATOR [address] [place] [address] 02/22/2025 2:00 PM PLUG OVERWRAP MACHINE TENDER Office Visit [place] [address] [place] [phone] Dolores Velasquez, APRICOT WASHER-SUPPLY COORDINATOR [address] [place] [address] 11/24/2025 3:00 PM CDT Office Visit [facility] - Sleep Services [address] [address] Arnaldo Duarte MD [address] [facility] [address] [place] [address] Health Maintenance Due Date Last Done Comments [...] Blood Pressure 135/89( 025 2:38 PM CDT) iLzeth Gilman Procedures Procedure Name Priority Date/Time Associated Diagnosis Comments PATHOLOGY TISSUE EXAM (STL) Routine 11/05/2024 1:04 PM CDT Screen for colon cancer History of colon polyps History of diverticulosis ENDOSCOPY, COLON, SCREENING Routine 11/05/2024 12:24 PM CDT Screening for colon cancer COLONOSCOPY REMOVAL OR ABLATION TUMOR/POLYP/LESION (ANY METHOD) 11/05/2024 12:00 PM CDT Screen for colon cancer History of colon polyps History of diverticulosis [place] COLONOSCOPY, DIAGNOSTIC 11/05/2024 12:00 PM CDT Screen for colon cancer History of colon polyps History of diverticulosis LIPID PROFILE 01/13/2024 8:16 AM PLUG OVERWRAP MACHINE TENDER MAMMOGRAM 09/26/2023 HEMOGLOBIN A1C 06/02/2023 7:23 AM CDT HEPATITIS C AB W/RFLX TO HCV RNA QN PCR 06/02/2023 7:23 AM CDT HIV-1 HIV-2 ANTIGEN/ANTIBODY W RFLX Routine 01/13/2017 4:00 PM PLUG OVERWRAP MACHINE TENDER Screening for HIV (human immunodeficiency virus) from Last 3 Months or Most Recently Relevant to Health Maintenance Results * PATHOLOGY TISSUE EXAM (STL) (11/05/2024 1:04 PM CDT) Case Report Surgical Pathology Report Case: [id number] Authorizing Provider: Kyle Wakefield MD Collected: 11/05/2024 01:04 PM Ordering Location: [facility] Received: 11/05/2024 01:23 PM Hospital - Endoscopy Services Pathologist: Mary Willard MD Specimens: A) - Polyp Ascending B) - Polyp Sigmoid 11/09/2024 9:57 AM CDT [facility] Final Diagnosis Large intestine, ascending polyp, biopsy (A) - Benign polypoid mucosa Large intestine, sigmoid polyp, biopsy (B) - Hyperplastic polyp 11/09/2024 9:57 AM CDT [facility] at 0957 CDT Clinical History The patient is 59 years old, presenting for screening colonoscopy. Endoscopic procedure/findings: single ascending polyp, polypectomy; single sigmoid polyp, polypectomy. 11/09/2024 9:57 AM CDT [facility] Gross Description The requisition and specimen [...] in cassette B1. IKD 11/09/2024 9:57 AM [facility] Microscopic Description Microscopic examination substantiates the above diagnosis. 11/09/2024 9:57 AM T [facility] Pathologist Location at [facility] 11/09/2024 9:57 AM T [facility] Disclaimer All histochemical and/or immunohistochemical results are interpreted with controls that demonstrate appropriate staining reactions before reporting results. Note on use of immunocytochemistry reagents: This test was developed and its performance characteristic determined by [facility], Department of Laboratory Medicine. It has not [...] be interpreted with caution. 11/09/2024 9:57 AM [facility] Embedded Images 11/09/2024 9:57 AM T [facility] Pathology/Cytology POLYP / Unknown 2024 1:04 [...] ORDERAB LES Final Result [facility] [address] [place] [address] * Endoscopy, Colon, Screening (11/05/2024 12:24 PM CDT) Report Endoscopy POC _ Patient Name: Mac Pelaez Procedure Date: 11/05/2024 12:24 PM Date of : 1965 Admit Type: Outpatient Age: 59 Gender: Female Ethnicity: Not or Race: Black or Attending MD: Kyle Wakefield MD, [id number] _ Procedure: Colonoscopy Indications: Screening for colorectal malignant neoplasm Providers: Kyle Wakefield MD (Doctor), Marychuy Chou RN, Sarah Benitez, RN, Harleen Phillip RN, Kita Mckinney, School Bus Mechanic Referring MD: Tricia Mason (Referring MD) Medicines: [...] pathology results. Procedure Code(s): --- Professional --- 03757, Colonoscopy, flexible; with biopsy, single or multiple --- Technical --- 95599, Colonoscopy, flexible; with biopsy, single or multiple [...] or abscess without bleeding CPT copyright 2022 [employer]. All rights reserved. The codes documented in this report are preliminary and upon armament mechanic review may be revised to meet current compliance requirements. Kyle Wakefield MD 11/05/2024 1:11:19 PM This report has been signed electronically. Number of Addenda: 0 Note Initiated On: 11/05/2024 12:24 PM [facility] 11/05/2024 12:2 4 PM CDT us Kyle Wakefield MD GI PROCEDURE ORDERABLES Edited R esult - Final [facility] * (ABNORMAL) LIPID PROFILE (01/13/2024 8:16 AM PLUG OVERWRAP MACHINE TENDER) Cholesterol 177 <200 mg/dL [facility] HDL Cholesterol [...] of LDL-C. Leo SS et al. SVETA. 2013;310(21): 1520-4898 (http://education.VSHORE/faq/RSM457) CHOL/HDLC RATIO 2.9 <5.0 (calc) [facility] Non HDL Cholesterol 115 <130 mg/dL (calc) [facility] Comment: For patients with diabetes plus 1 major ASCVD risk factor, treating to a non-HDL-C goal of <100 mg/dL (LDL-C of <70 mg/dL) is considered a therapeutic option. Test Performed at: [facility] [address] TYRA PINTO MD 01/13/2024 8:16 AM PLUG OVERWRAP MACHINE TENDER 01/13/2024 8:16 AM PLUG OVERWRAP MACHINE TENDER Dolores Velasquez APRICOT WASHER-SUPPLY COORDINATOR LAB - CHEMISTRY ORDERA BLES Final Result [address] [address] * MAMMOGRAM (09/26/2023) Anatomical Region Laterality Modality [...] a test for HCV RNA (test code 00993) is suggested. For additional information please refer to http://education.Cargomatic/faq/QZS42v6 (This link is being provided for informational/ educational purposes only.) Test Performed at: [facility] [address] [place] [address] TYRA PINTO MD 06/02/2023 7:23 AM CDT 06/02/2023 7:24 AM CDT Dolores Velasquez APRN-SUPPLY COORDINATOR LAB - CHEMISTRY ORDERA BLES Final Result [address] [address] * HEMOGLOBIN A1C (06/02/2023 7:23 AM CDT) Hemoglobin A1c 5.4 <5.7 % of total Hgb [facility] Comment: For the purpose of screening for the presence of diabetes: <5.7% Consistent with the absence of diabetes 5.7-6.4% Consistent with increased risk for diabetes (prediabetes) > or =6.5% Consistent with diabetes This assay result is consistent with a decreased risk of diabetes. Currently, no consensus exists regarding use of hemoglobin A1c for diagnosis of diabetes in children. According to [place] [employer] (ADA) guidelines, hemoglobin A1c <7.0% represents optimal control in non- diabetic patients. Different metrics may apply to specific patient populations. Standards of Medical Care in Diabetes(ADA). This test was performed on the Sarah lena c503 platform. Effective 05/26/23, a change in test platforms from the [employer] Research Physician to the Sarah lena c503 may have shifted HbA1c results compared to historical results. Based on laboratory validation testing conducted at [facility], the Sarah platform relative to the Morales [...] recommended. REPORT COMMENT: FASTING:YES Test Performed at: [facility] [address] TYRA PINTO MD 06/02/2023 7:23 AM CDT 06/02/2023 7:24 AM CDT Dolores D Velasquez APRICOT WASHER-SUPPLY COORDINATOR LAB - CHEMISTRY ORDERA BLES Final Result Performing Organization Address [facility] de Phone Number [facility] [address] [place] [address] * HIV-1 HIV-2 ANTIGEN/ANTIBODY W RFLX (01/13/2017 4:00 PM PLUG OVERWRAP MACHINE TENDER) HIV Screen 4th Generation w Reflex NON-REACT [...] purpose. For additional information please refer to http://education.Cargomatic/faq/YHJ404 (This link is being provided for informational/ educational purposes only.) The performance of this assay has not been clinically validated in patients less than 2 years old. Test Performed at: [facility] [address] [place] [address] EAMON RIVERA DO,MPH Blood BLOOD SPECIMEN / Unknown 01/13/2017 4:00 PM PLUG OVERWRAP MACHINE TENDER 01/13/2017 4:01 PM PLUG OVERWRAP MACHINE TENDER Dolores Velasquez APRICOT WASHER-SUPPLY COORDINATOR LAB - SEROLOGY ORDERAB LES Final Result Performing Organization Address [facility] Co de Phone Number [facility] [address] [place] [address] from Last 3 Months or Most Recently Relevant to Health Maintenance Additional Health Concerns Infection Onset Date Last Indicated MRSA Hx 06/20/2016 06/20/2016 Insurance [facility] Advance Directives * Full Code [...] 1:25 PM 06/04/2015 3:09 PM Care Teams Resin Painter Relationship Specialty Start Date End Date Tricia Mason MD [address] [place] [address] PCP - General Family Medicine 08/23/24 Arnaldo Duarte MD [address] DIV OF PULMONARY/[place] [address] Pulmonary Disease 01/23/23 Monica Kumari PA [address] [facility] [address] DIV OF PULMONARY/[place] [address] Physician Teacher Visually Impaired 01/23/23 Maxine Armenta MD [address] [place] [address] Resident Psychiatry 01/23/23 Diana Ascencio MD [address] [place] [phone] Internal Medicine 01/23/23 Ann Smith, ocean biologist 04/11/23 Nathaniel Browne MD [address] [place] [address] Resident Psychiatry 07/01/24 Deni Syed, Physician Endoscopy 07/27/24
--- NOTE | 2024-12-01 13:25 | ED.ABDPAIN ---
HPI - Abdominal Pain General Chief Complaint: Abdominal Pain Stated Complaint: LL abdominal pain worsening over last few days Time Seen by Provider: 12/01/24 11:20 Source: patient Mode of arrival: ambulatory Limitations: no limitations History of Present Illness HPI narrative: 59-year-old with a history of diverticulosis presents to the ER with a complaint of left lower abdominal pain for last 4-5 days. Denies any fever or chills. No history of nausea or vomiting. MD elicited complaint: abdominal pain Pertinent past history: none Onset (ago): day(s) (5) Pain Consistency: constant Location: LLQ Quality: aching Radiation: none Migration to: no migration Exacerbating factors: nothing Relieving factors: nothing Associated symptoms: denies other symptoms Related Data Home Medications ?Medication ?Instructions ?Recorded ?Confirmed ?Last Taken ?Type albuterol sulfate 90 mcg/actuation 2 puff inhalation Q6H PRN 12/08/21 12/08/21 Unknown History aerosol inhaler Shortness Of Breath amlodipine 5 mg tablet 5 mg PO DAILY 12/08/21 12/08/21 Unknown History citalopram 20 mg tablet 20 mg PO DAILY 12/08/21 12/08/21 Unknown History clonazepam 1 mg tablet 1 mg PO HS PRN Anxiety 12/08/21 12/08/21 Unknown History folic acid 1 mg tablet 1 mg PO DAILY 12/08/21 12/08/21 Unknown History irbesartan 150 mg tablet 150 mg PO DAILY 12/08/21 12/08/21 Unknown History lurasidone 40 mg tablet (Latuda) 40 mg PO DAILY 12/08/21 12/08/21 Unknown History prednisone 5 mg tablet 5 mg PO DAILY 12/08/21 12/08/21 Unknown History sarilumab 200 mg/1.14 mL 200 mg subcut [id number] 12/08/21 12/08/21 11/30/21 History subcutaneous syringe (Kevzara) Allergies Allergy/AdvReac Type Severity Reaction Status Date / Time Contrast Media Allergy Unknown Hives / Uncoded 06/04/23 06:56 Red Face Review of Systems Review of Systems: All systems reviewed & are unremarkable except as noted in HPI and below Constitutional: Constitutional: Reports no additional constitutional complaints Eyes: Eyes: Reports no additional eye complaints ENT: Reports system reviewed and no additional complaints, except as documented Cardiovascular: Cardiovascular: Reports no additional cardiovascular complaints Respiratory: Respiratory: Reports no additional respiratory complaints Gastrointestinal: Gastrointestinal: Reports as per HPI Musculoskeletal: Musculoskeletal: Reports no additional musculoskeletal complaints [facility] Past Medical History Medical History (Updated 12/01/24 @ 13:26 by Sotero Hall MD) Anxiety Depression Essential hypertension Rheumatoid arthritis Lupus Surgical History Surgical History History of laparoscopic cholecystectomy History of hysterectomy Family History Family History Sibling Congestive heart failure, Onset Age: 50 Father Cerebrovascular accident Acute myocardial infarction, Onset Age: 70 Hypertension Mother Cerebrovascular accident Acute myocardial infarction Hypertension Social History Social History (Updated 12/08/21 @ 05:48 by Sally Torres DO) Social History: She lives at home with her of 4 years. She raised 3 sons. 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 She drinks alcohol on occasion once every 2 or 3 months. She is a lifelong nonsmoker and does not use illicit substances. Code status: Full code Surrogate decision maker: Юлия Victoria () Smoking status: Never smoker Alcohol intake: current Drinks per week: 1 Substance use: never Substance use type: does not use Spiritual care concerns: No Exam Narrative: GENERAL: Well-appearing, well-nourished, and in no acute distress. HEAD: Normocephalic, atraumatic. EYES: PERRLA and EOMI. ENT: Nares clear, no rhinorrhea or epistaxis. Mucous membranes moist. NECK: Supple. CHEST: Clear to auscultation. No respiratory distress. HEART: Regular rate and rhythm. No murmur heard. Normal peripheral pulses. ABDOMEN: Soft,tender in the LLQ, nondistended, normal active bowel sounds. EXTREMITIES: Normal range of motion. No edema. SKIN: Warm, dry, no rash. NEURO: No focal deficits. Alert and oriented x3. PSYCH: Normal mood and affect. Course Course Emergency Course: Patient comfortably resting on the stretcher informed her about the lab work, CT findings. Advised to take antibiotic as prescribed be on liquid diet. Vital Signs Vital signs: Vital Signs Temperature 36.6 C 12/01/24 10:48 Pulse Rate 83 12/01/24 10:48 Respiratory Rate 18 12/01/24 10:48 Blood Pressure 137/86 12/01/24 10:48 Pulse Oximetry 99 12/01/24 10:48 Oxygen Delivery Room Air 12/01/24 10:48 Temperature 36.6 C 12/01/24 10:48 Pulse Rate 83 12/01/24 10:48 Respiratory Rate 18 12/01/24 10:48 Blood Pressure 137/86 12/01/24 10:48 Pulse Oximetry 99 12/01/24 10:48 Oxygen Delivery Room Air 12/01/24 10:48 MDM - Abdominal Pain Lab Data 12/01/24 11:53 12/01/24 11:53 Labs: Lab Results 12/01/24 Range/Units 11:53 WBC 6.9 (4.5-10.0) K/mm3 RBC 4.70 (4.6-6.20) M/mm3 Hgb 14.9 (14.0-18.0) g/dL Hct 43.8 (42.0-52.0) % MCV 93.2 (80-100) fl MCH 31.7 (26-34) pg MCHC 34.0 (32-36) g/dl RDW 13.2 (11.5-14.5) % Plt Count 173 (150-375) k/mm3 MPV 11.2 H (7.4-10.4) fl Immature Gran % (Auto) 0.4 (0-0.5) % Neut % (Auto) 76.4 H (45.5-73.1) % Lymph % (Auto) 9.7 L (18.3-44.2) % [place] % (Auto) 10.9 H (2.6-8.5) % Eos % (Auto) 2.0 (0-4.4) % Baso % (Auto) 0.6 (0.2-1.2) % Lymph # (Auto) 0.67 L (0.9-3.2) K/mm3 [place] # (Auto) 0.8 H (0.1-0.6) K/mm3 Eos # (Auto) 0.1 (0-0.3) K/mm3 Baso # (Auto) 0.0 (0.0-0.1) K/mm3 Abs Immat Gran (auto) 0.03 (0.00-0.031) K/mm3 Absolute Neuts (auto) 5.3 (1.3-6.7) K/mm3 Absolute Nucleated RBC 0.000 (0.0-0.012) K/mm3 Nucleated RBC % 0.0 (0.0-0.2) % Sodium 135 L (137-145) mmol/L Potassium 3.7 (3.4-5.0) mmol/L Chloride 101 (98-107) mmol/L Carbon Dioxide 27 (22-30) mmol/L Anion Gap 7 (4-12) mmol/L BUN 13 (9-20) mg/dL Creatinine 1.03 (0.7-1.3) mg/dL Estim Creat Clear Calc 59 ml/min Estimated GFR > 60 (59 - ) Glucose 93 (65-110) mg/dL Lactic Acid 1.0 (0.7-2.0) mmol/L Calcium 9.1 (8.4-10.2) mg/dL Total Bilirubin 1.9 H (0.2-1.3) mg/dL AST 29 (17-59) U/L ALT 21 (6-50) U/L Alkaline Phosphatase 70 (38-126) U/L Total Protein 8.3 H (6.3-8.2) g/dL Albumin 4.3 (3.5-5.1) g/dL Imaging Data Radiologist's impression: ITS Impressions Abdomen/Pelvis CT 12/01/24 12:24 IMPRESSION: 1. Mild sigmoid diverticulosis. No perforation or abscess. Discharge Plan Discharge Clinical Impression: Diverticulitis Patient Disposition: Home Condition: Stable Instructions: Antibiotic Form Additional Instructions: Continue home medication, be on a liquid diet for 48 hours, take antibiotic as prescribed Patient Language: Lao Prescriptions: New amoxicillin-pot clavulanate 875-125 mg tablet 1 tablet PO Q12H Qty: 14 0RF No Action prednisone 5 mg tablet 5 mg PO DAILY clonazepam 1 mg tablet 1 mg PO HS PRN (Reason: Anxiety) amlodipine 5 mg tablet 5 mg PO DAILY citalopram 20 mg tablet 20 mg PO DAILY folic acid 1 mg tablet 1 mg PO DAILY irbesartan 150 mg tablet 150 mg PO DAILY albuterol sulfate 90 mcg/actuation HFA aerosol inhaler 2 puff INHALATION Q6H PRN (Reason: Shortness Of Breath) Latuda 40 mg tablet 40 mg PO DAILY Rx Instructions: order for pt to take 1/2 tablet daily with dinner for 7 days then 1 tablet with dinner for 21 days for depression. Pt started on 11/27/21 Kevzara 200 mg/1.14 mL syringe 200 mg SUBCUT [id number] Rx Instructions: pt due again 12/14/21 meclizine 12.5 mg tablet 12.5 mg PO TID PRN (Reason: dizziness) Qty: 10 0RF Debrox 6.5 % drops 5 drp EACH EAR Q12H 4 Days Qty: 15 0RF naproxen [Naprosyn] 500 mg tablet 500 mg PO BID Qty: 20 0RF cyclobenzaprine 10 mg tablet 10 mg PO TID Qty: 14 0RF Follow-up/Referrals: PHYSICIAN NOT ON STAFF,NONSTAFF [Primary Care Provider] Time of Disposition: 13:25
[2024-12-01 13:42] VITALS: BP 136/74; PULSE 80; RESP 16; TEMP 36.4; O2SAT 98
== END 2024-12-01 13:44 | disposition home or self-care (01) ==
PROVIDERS: Emergency Provider Family Medicine
DX: K57.30 Diverticulosis of large intestine without perforation or abscess without bleeding (principal); M06.9 Rheumatoid arthritis, unspecified; M32.9 Systemic lupus erythematosus, unspecified; F32.A Depression, unspecified; F41.9 Anxiety disorder, unspecified; Z79.620 Long term (current) use of immunosuppressive biologic; Z79.899 Other long term (current) drug therapy
CPT/HCPCS: 36415; 74176; 80053; 83605; 85025; 99284